=== PATIENT | male | born 1935 | race Caucasian/White ===

== ENCOUNTER 2023-01-01 07:54 | Outpatient (OUT) | payer MEDICARE, OTHER, SELFPAY ==
[2023-01-01 08:26] LABS: Basophils Percent Auto 0.6 % (0.2-2.0); Eosinophils Absolute Auto 0.1 10^3/uL (0.0-0.7); Eosinophils Percent Auto 1.8 % (0.9-7.0); Hematocrit 43.1 % (42.0-54.0); Hemoglobin 14.5 g/dL (14.0-18.0); Immature Granulocytes Abs Auto 0.02 10^3/uL (0.00-0.03); Immature Granulocytes Pct Auto 0.4 % (0.0-0.5); Lymphocytes Absolute Auto 1.1 10^3/uL (1.2-3.8); Mean Corpuscular HGB Conc 33.6 g/dL (29.9-35.2); Mean Corpuscular Hemoglobin 31.9 pg (25.9-34.0); Mean Corpuscular Volume 94.7 fL (80.0-94.0); Mean Platelet Volume 9.6 fL (9.5-13.5); Monocytes Absolute Auto 0.5 10^3/uL (0.3-0.8); Monocytes Percent Auto 8.6 % (1.7-12.0); Neutrophils Absolute Auto 3.7 10^3/uL (1.4-6.5); Neutrophils Percent Auto 68.6 % (43.0-75.0); Platelet Count 169 10^3/uL (150-450); Red Blood Count 4.55 10^6/uL (4.70-6.10); White Blood Count 5.4 10^3/uL (4.0-11.0)
[2023-01-01 09:12] LABS: Alanine Aminotransferase 21 U/L (16-63); Anion Gap 10.7; BUN Creatinine Ratio 15.6; Carbon Dioxide 27.6 mmol/L (21.0-32.0); Chloride 108 mmol/L (98-107); Chol HDL Ratio 2.4; Cholesterol 99 mg/dL (<=200); Estimated GFR (African America 47 (>=60); Estimated GFR (Non-African Ame 39 (>=60); Glucose 120 mg/dL (74-106); HDL Cholesterol 41 mg/dL (40-60); LDL Cholesterol Calculated 43.2 mg/dL; Potassium 4.3 mmol/L (3.5-5.1); Sodium 142 mmol/L (136-145); Thyroid Stimulating Hormone 2.636 uIU/mL (0.358-3.740); Triglycerides 74 mg/dL (<=150); VLDL CHOLESTEROL 14.8 mg/dL
== END 2023-01-01 07:55 | disposition home or self-care (01) ==
LOC: LAB 07:58
PROVIDERS: PCP Internal Medicine; Visit Provider Internal Medicine
DX: N18.32 Chronic kidney disease, stage 3b (principal); Z79.899 Other long term (current) drug therapy; I50.32 Chronic diastolic (congestive) heart failure; E78.00 Pure hypercholesterolemia, unspecified; R53.83 Other fatigue
CPT/HCPCS: 36415; 80048; 80061; 83880; 84443; 84460; 85025

== ENCOUNTER 2023-04-04 07:14 | Outpatient (OUT) | payer MEDICARE, OTHER, SELFPAY ==
[2023-04-04 08:24] LABS: Anion Gap 13.8; BUN Creatinine Ratio 14.6; Chloride 107 mmol/L (98-107); Estimated GFR (African America 37 (>=60); Estimated GFR (Non-African Ame 31 (>=60); Glucose 131 mg/dL (74-106); Potassium 3.8 mmol/L (3.5-5.1); Sodium 141 mmol/L (136-145)
== END 2023-04-04 07:15 | disposition home or self-care (01) ==
LOC: LAB 07:15
PROVIDERS: PCP Internal Medicine; Visit Provider Internal Medicine Cardiovascular Disease
DX: I10 Essential (primary) hypertension (principal); I48.91 Unspecified atrial fibrillation
CPT/HCPCS: 36415; 80048

== ENCOUNTER 2024-01-28 07:09 | Outpatient (OUT) | payer MEDICARE, OTHER, SELFPAY ==
--- OUTSIDE RECORDS SUMMARY | 2024-01-28 07:12 | XMS_ITS | CCD ---
Author Organization [facility] Providers Care Branch Rental Manager Name Role Phone PHYSICIAN, DEFAULT Unavailable Unavailable PHYSICIAN, DEFAULT Unavailable Unavailable MOFFETT, DK Unavailable Unavailable NO FAMILY DOCTOR, NO FAMILY DOCTOR Unavailable Unavailable Sanya Nuno Unavailable Unavailable Unavailable SANYA NUNO Primary Care Physician Sanya Nuno Unavailable Yaakov, Dr. Sanya Snyder Primary Care Arie birch Moffett, Dk Referring Unavailable Moffett, Dk Attending Unavailable Moffett, Dk Attending Unavailable Ball, Dr. Sanya Snyder Primary Care Unavai lable Moffett, Dk Referring Unavailable BALL, DR LOVELACE Admitting Unavailable BALL, DR LOVELACE Primary Care Unavailable BALL, DR LOVELACE Consulting Unavailable BALL, DR LOVELACE Attending Unavailable BALL, DR LOVELACE Admitting Unavailable BALL, DR LOVELACE Primary Care Unavailable BALL, DR LOVELACE Consulting Unavailable BALL, DR LOVELACE Attending Unavailable LE, NISHANT Consulting Unavailable BALL, DR LOVELACE Primary Care Unavailable MOFFETT, DR DK Higginbotham Consulting Unavailable MOFFETT, DR DK Higginbotham Attending Unavailable MOFFETT, DR DK Higginbotham Admitting Unavailable BALL, DR LOVELACE Admitting Unavailable BALL, DR LOVELACE Primary Care Unavailable BALL, DR LOVELACE Consulting Unavailable BALL, DR LOVELACE Attending Unavailable WEST, DR GITA Barry Consulting Unavailable BALL, DR LOVELACE Admitting Unavailable BALL, DR LOVELACE Consulting Unavailable BALL, DR LOVELACE Primary Care Unavailable BALL, DR LOVELACE Attending Unavailable YEH, BRYSON Consulting Unavailable BALL, DR LOVELACE Admitting Unavailable BALL, DR LOVELACE Primary Care Unavailable BALL, DR LOVELACE Attending Unavailable BALL, DR LOVELACE Attending Unavailable BALL, DR LOVELACE Admitting Unavailable BALL, DR LOVELACE Primary Care Unavailable BALL, DR LOVELACE Primary Care Unavailable NADERER, DR ROSEMARY Houston Attending Unavailable NADERER, DR ROSEMARY Houston Admitting Unavailable HOY ., DR ROBLES Consulting Unavailable NADMARIANA, DR ROSEMARY Houston Consulting Unavailable PAY ., DR TUCKER Consulting Unavailable SUSU ., NE Consulting Unavailable DEVEN, BRIELLE Consulting Unavailable TRAVIS CHEW Consulting Unavailable RONA VINCENT Consulting Unavailable MANA CALVO Consulting Unavailable Ariel Tyson Consulting Unavailable Rojelio MARK Attending Unavailable JANICE WILLIAMSON Attending Unavailable Shyann Inman Attending Unavailable Sanya Nuno DO Primary Care Provider DK MOFFETT Attending Unavailable DK MOFFETT Referring Unavailable SANYA NUNO Primary Care Unavailable ARCHANA VAZQUEZ Attending Unavailable ARCHANA VAZQUEZ Attending Unavailable RANI RILEY Attending Unavailable RONA PAYNE Attending Unavailable TEENA LYNCH Attending Unavailable ARCHANA VAZQUEZ Attending Unavailable Allergies Allergy Classification Reported Allergen(s) Allergy Type Date of Onset Reaction(s) Facility (14 sources) HMG-CoA reductase inhibitor Drug allergy Unknown [employer] Other (5 sources) gabapentin Drug Allergy 4 Unknown, Unknown Reaction [facility] (1 source) gabapentin; Translations: [Neurontin] Drug Allergy [facility] Repository (1 source) Hmg-Coa Reductase Inhibitors (Statins); Translations: [statins] Propensity to adverse reactions (disorder) [facility] Repository (1 source) No Known Medication Allergies; Translations: [No Known Medication Allergies] Propensity to adverse reactions (disorder) [facility] Repository (2 sources) Lphsaky-BDW-[id number] Reductase Inhibitor Allergy to substance 4 Unknown Reaction [facility] Medications Current Medications Medication Drug Class(es) Dates Sig (Normalized) Sig (Original) ALPRAZolam 0.25 mg oral tablet (16 sources) Benzodiazepine Start: 10-03-2023 take 0.25 mg by mouth once daily Alprazolam Active 0.25 MG PO Daily October 03, 2023 12:00am ALPRAZolam 0.25 MG 1 tablet Orally as needed for anxiety Active apixaban 2.5 mg oral tablet (20 sources) Factor Xa Inhibitor Start: 07-17-2019 take 1 tablet by mouth twice daily Apixaban (Eliquis) 2.5 mg tablet Active 2.5 MG PO Twice daily October 03, 2023 12:00am take 1 tablet by mouth every twe lve hours Eliquis 2.5 MG TAKE 1 TABLET BY MOUTH EVERY 12 HOURS Active aspirin 81 mg delayed release oral tablet (20 sources) Platelet Aggregation Inhibitor, Nonsteroidal Anti-inflammatory Drug Start: 08-25-2019 take 81 mg by mouth once daily Aspirin Active 81 MG PO Daily October 03, 2023 12:00am atorvastatin 10 mg oral tablet (20 sources) HMG-CoA Reductase Inhibitor Start: 12-29-2019 take 10 mg by mouth once daily Atorvastatin Active 10 MG PO Daily October 03, 2023 12:00am clopidogrel 75 mg oral tablet (20 sources) [id number] Platelet Inhibitor Start: 07-03-2022 take 75 mg by mouth once daily Clopidogrel Active 75 MG PO Daily October 03, 2023 12:00am clotrimazole 10 mg/ml topical cream (1 source) Azole Antifungal Start: 10-02-2023 clotrimazole Top 1% Crm 1 fabio, Topical, BID, 60 gram, Refill(s) 1, [facility] #[id number], 176, cm, 10/02/23 12:34:00 EDT, Height/Length Dosing, 97.5, kg, 10/02/23 12:34:00 EDT, Weight Dosing Start Date: 10/02/23 Status: Ordered dilTIAZem (13 sources) Calcium Channel Paul dilTIAZe m HCl Active finasteride 5 mg oral tablet (20 sources) 5-alpha Reductase Inhibitor Start: 08-07-2020 take 5 mg by mouth once daily Finasteride Active 5 MG PO Daily October 03, 2023 12:00am furosemide 40 mg oral tablet (14 sources) Loop Diuretic Start: 09-11-2023 take 1 tablet by mouth every other day Furosemide Active 0 .ROUTE .COMPLEX 45 September 11, 2023 5:57pm TAKE 1 TABLET BY MOUTH EVERY OTHER DAY Start: 09-11-2023 End: 09-11-2023 take 1 tablet by mouth every other day Furosemide Discontinued 40 MG PO Every 48 hours September 11, 2023 12:00am September 11, 2023 5:58pm 1 tablet Orally qod take 1 tablet by lacie th once daily Furosemide 40 MG TAKE 1 TABLET BY MOUTH EVERY DAY FOR 15 DAYS Active gabapentin 300 mg oral capsule (20 sources) Anti-epileptic Agent Start: 12-23-2023 take 1 capsule by mouth once daily Gabapentin Active 0 .ROUTE .COMPLEX December 23, 2023 7:35am TAKE 1 CAPSULE BY MOUTH EVERY DAY Start: 08-15-2021 take 1 mg by mouth t hree times daily gabapentin 100 mg Cap mg cap(s), Oral, TID, Refills(s) 0 Start Date: 08/15/21 Status: Ordered Start: 07-19-2021 End: 12-23-2023 take 300 mg by mouth once daily Gabapentin Discontinue d 300 MG PO Daily October 03, 2023 12:00am December 23, 2023 7:35am Start: 08-02-2020 take 1 capsule by mo uth once daily Gabapentin 100 MG Oral Capsule TAKE 1 CAPSULE BY MOUTH EVERY DAY Quantity: 30 Refills: 0 Ordered: 02-Aug-2020 DO Start : 02-Aug-2020 Active losartan potassium 50 mg oral tablet (20 sources) Angiotensin 2 Receptor Paul Start: 06-14-2021 Losartan Potassium 5 0 MG Oral Tablet Quantity: 90 Refills: 0 Ordered: 14-Jun-2021 DO Start : 14-Jun-2021 Active Start: 08-25-2019 take 50 mg by mouth once daily Losartan Active 50 MG PO Daily October 03, 2023 12:00am metoprolol tartrate 25 mg oral tablet (20 sources) beta-Adrenergic Paul Start: 10-16-2023 End: 10-15-2024 take 0.5 tablet by mouth once daily metoprolol tartrate (Lopressor) 25 mg tablet Indications: Atherosclerotic heart disease of [place] coronary artery without angina pectoris Take 0.5 tablets (12.5 mg) by mouth once daily. 45 tablet 3 10/16/2023 10/15/2024 Active Start: 10-16-2023 take 12.5 mg by mout h once daily Metoprolol Succinate Active 12.5 MG PO Daily October 16, 2023 1:01pm Start: 07-31-2023 End: 10-16-2023 take 1 tablet by mouth once daily metoprolol tartrate (Lopressor) 25 mg tablet Indications: Atherosclerotic heart disease of [place] coronary artery without angina pectoris Take 1 tablet (25 mg) by mouth once daily. 90 tablet 3 07/31/2023 10/16/2023 Discontinued (Reorder) Start: 09-13-2022 take 0.5 tablet by m outh once daily Metoprolol Tartrate 25 MG Oral Tablet TAKE 1/2 TABLET ONE TIME DAILY Quantity: 45 Refills: 3 Ordered: 13-Sep-2022 Dk Moffett MD Start : 13-Sep-2022 Active Start: 06-07-2022 take 1 tablet by lacie th once daily Metoprolol Tartrate 25 MG Oral Tablet TAKE 1 TABLET BY MOUTH EVERY DAY Quantity: 90 Refills: 3 Ordered: 07-Jun-2022 Dk Moffett MD Start : 07-Jun-2022 Active Start: 08-25-2019 End: 10-16-2023 take 25 mg by mouth once daily Metoprolol Succinate Discontinued 25 MG PO Daily October 03, 2023 12:00am October 16, 2023 1:01pm Metoprolol Tartr ate Active take 1 tablet by lacie th once daily Metoprolol Tartrate 25 MG Oral Tablet TAKE 1 TABLET DAILY. Quantity: 90 Refills: 3 Ordered: 16-Aug-2021 Dk Moffett MD Active omeprazole 40 mg delayed release oral capsule (16 sources) Proton Pump Inhibitor Start: 10-03-2023 take 40 mg by mouth once daily Omeprazole Active 40 MG PO Daily October 03, 2023 12:00am take 1 capsule by mo wvh every twenty-four hours Omeprazole 40 MG 1 capsule Orally Once a day Active oxybutynin chloride 5 mg oral tablet (16 sources) Cholinergic Muscarinic Antagonist Start: 10-03-2023 take 5 mg by mouth at bedtime Oxybutynin Chloride Active 5 MG PO Bedtime October 03, 2023 12:00am take 1 tablet by mouth at bedtim e oxyBUTYnin Chloride 5 MG 1 tablet Orally HS Active sennosides (SENNA ORAL) (1 source) take 1 tablet by mouth once daily sennosides (SENNA ORAL) Take 1 tablet by mouth once daily. Active tamsulosin hydrochloride 0.4 mg oral capsule (20 sources) alpha-Adrenergic Paul Start: 07-17-2019 take 0.4 mg by mouth once daily Tamsulosin Active 0.4 MG PO Daily October 03, 2023 12:00am Completed/Discontinued Medications Medication Drug Class(es) Dates Sig (Normalized) Sig (Original) betamethasone 0.5 mg/ml / clotrimazole 10 mg/ml topical cream (20 sources) Azole Antifungal, Corticosteroid Start: 10-02-2023 betamethasone-cl otrimazole Top 0.05%-1% Crm 15 gram Start Date: 10/02/23 Status: Ordered Start: 09-19-2023 Clotrimazole-B etamethasone Active 0 .ROUTE .COMPLEX September 19, 2023 10:50am APPLY TO AFFECTED AREA TWICE DAILY NEEDED FOR 14 DAYS Start: 09-19-2023 End: 09-19-2023 Clotrimazole-Betamethasone D iscontinued 1 APPLIC TOPICAL September 19, 2023 12:00am September 19, 2023 10:50am APPLY TO AFFECTED AREA TWICE A DAY NEEDED Start: 03-01-2020 betamethasone- clotrimazole Top 0.05%-1% Crm 15 gram Refill(s) 0 Start Date: 03/01/20 Status: Ordered Clotrimazole-Bet amethasone 1-0.05 % APPLY TO AFFECTED AREA TWICE A DAY NEEDED FOR 14 DAYS for 14 Active linaclotide 0.072 mg oral capsule (14 sources) Guanylate Cyclase-C Agonist Start: 02-13-2018 take 1 capsule by mouth every twenty-four hours Linzess 72 MCG 1 capsule on an empty stomach Orally Once a day for 30 day(s) Jan, Not-Taking/PRN Start: 02-13-2018 take 1 capsule by mo ut every twenty-four hours Linzess 72 MCG 1 capsule on an empty stomach Orally Once a day for 30 day(s) Jan, Not-Taking pantoprazole 40 mg delayed release oral tablet (14 sources) Proton Pump Inhibitor Start: 02-13-2018 take 1 tablet by mouth every twenty-four hours Pantoprazole Sodium 40 MG 1 tablet Orally Once a day for 30 day(s) Jan, Not-Taking/PRN Senna Smooth TABS (9 sources) Senna Smooth TAB S USE DIRECTED. Quantity: 0 Refills: 0 Ordered: 02-Aug-2021 DO Active Problems Active Problems Problem Classification Problem Date Documented Da te Episodic/Chronic Abdominal pain (20 sources) Flank pain; Translations: [Indigestion] Onset: 5 Resolved: 2 03-01-2020 Episodic Acute cerebrovascular disease (20 sources) Cerebrovascular accident; Translations: [Stroke syndrome] Onset: 7 08-25-2019 Chronic Anxiety disorders (18 sources) Generalized anxiety disorder; Translations: [Generalized anxiety disorder] Chronic Aortic; peripheral; and visceral artery aneurysms (13 sources) Abdominal aortic aneurysm; Translations: [Aneurysm of infrarenal abdominal aorta ] Onset: 8 07-17-2019 Chronic Calculus of urinary tract (20 sources) History of calculus of kidney; Translations: [Kidney stone] Onset: 3 03-01-2020 Episodic Cardiac and circulatory congenital anomalies (20 sources) Patent foramen ovale; Translations: [Ostium secundum type atrial septal defect] Onset: 8 07-17-2019 Chronic Cardiac dysrhythmias (20 sources) Supraventricular tachycardia; Translations: [Other specified cardiac dysrhythmias] Onset: 3 08-25-2019 Chronic Chronic kidney disease (20 sources) Chronic kidney disease stage 3; Translations: [Chronic kidney disease, Stage III (moderate)] Onset: 5 10-03-2023 Chronic Chronic kidney disease (9 sources) Chronic kidney disease; Translations: [CHRONIC KIDNEY DISEASE STAGE 3B] Onset: 3 Conditions associated with dizziness or vertigo (19 sources) Benign paroxysmal positional vertigo; Translations: [Benign paroxysmal vertigo, bilateral] Onset: 2 Episodic Congestive heart failure; nonhypertensive (20 sources) Acute on chronic diastolic heart failure; Translations: [Acute on chronic diastolic (congestive) heart failure] Onset: 3 Chronic Coronary atherosclerosis and other heart disease (20 sources) Atherosclerotic heart disease of [place] coronary artery without angina pectoris; Translations: [Coronary atherosclerosis] Onset: 8 Resolved: 2 Chronic Disorders of lipid metabolism (20 sources) Mixed hyperlipidemia; Translations: [Mixed hyperlipidemia] Onset: 8 Resolved: 2 Chronic Esophageal disorders (20 sources) Gastroesophageal reflux disease; Translations: [Gastro-esophageal reflux disease without esophagitis] 07-17-2019 Chronic Essential hypertension (20 sources) Essential hypertension; Translations: [Unspecified essential hypertension] Onset: 3 07-17-2019 Chronic Fluid and electrolyte disorders (1 source) Dehydration; Translations: [DEHYDRATION] Onset: 3 Episodic Genitourinary symptoms and ill-defined conditions (20 sources) Nocturia; Translations: [Nocturia] Onset: 2 Episodic Heart valve disorders (13 sources) Mitral valve regurgitation; Translations: [Mitral valve disorders] Onset: 3 10-16-2023 Chronic Hyperplasia of prostate (20 sources) Benign prostatic hypertrophy with outflow obstruction; Translations: [Benign prostatic hyperplasia with lower urinary tract symptoms] Onset: 2 Chronic Hypertension with complications and secondary hypertension (20 sources) Hypertensive renal disease; 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] Onset: 6 07-17-2019 Chronic Immunizations and screening for infectious disease (3 sources) Vaccination given; Translations: [Encounter for immunization] Episodic Inflammatory conditions of male genital organs (7 sources) Balanitis; Translations: [Balanitis] Onset: 2 Chronic Intracranial injury (3 sources) Concussion with no loss of consciousness; Translations: [Concussion without loss of consciousness, subsequent encounter] Episodic Nausea and vomiting (14 sources) Nausea; Translations: [Nausea] Episodic Neoplasms of unspecified nature or uncertain behavior (17 sources) Carcinoid tumor of stomach; 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] Episodic Open wounds of head; neck; and trunk (17 sources) Facial laceration ; Translations: [Laceration without foreign body of other part of head, subsequent encounter] Episodic Osteoarthritis (20 sources) Localized, primary osteoarthritis of the ankle and/or foot; Translations: [Primary osteoarthritis, left ankle and foot] Onset: 8 Chronic Other aftercare (9 sources) Drug therapy finding; Translations: [Long-term (current) use of other medications] Episodic Other aftercare (14 sources) H/O: high risk medication; Translations: [Other snf (current) drug therapy] Episodic Other aftercare (17 sources) Long-term current use of anticoagulant; Translations: [residential (current) use of anticoagulants] Episodic Other aftercare (2 sources) Other snf (current) drug therapy; Translations: [OTH CORPORATE RECYCLING MANAGER CURRENT DRUG THERAPY] Onset: 3 Episodic Other aftercare (4 sources) residential (current) use of anticoagulants; Translations: [CORRECTION CURRNT USE ANTICOAGULANTS] Onset: 3 Episodic Other aftercare (3 sources) Long-term current use of drug therapy; Translations: [Other termite exterminator (current) drug therapy] Episodic Other and ill-defined cerebrovascular disease (16 sources) Cerebral atherosclerosis; Translations: [Cerebral atherosclerosis] 10-03-2023 Chronic Other and ill-defined cerebrovascular disease (5 sources) Cerebral atherosclerosis; Translations: [Cerebral atherosclerosis] Chronic Other and ill-defined cerebrovascular disease (1 source) Cerebrovascular disease, unspecified; Translations: [CEREBROVASCULAR DISEASE UNSPECIFIED] Onset: 3 Chronic Other and unspecified benign neoplasm (7 sources) History of polyp of colon; Translations: [Personal history of colonic polyps] Onset: 8 07-17-2019 Episodic Other circulatory disease (4 sources) History of paroxysmal supraventricular tachycardia 07-17-2019 Episodic Other circulatory disease (1 source) Personal history of transient ischemic attack (TIA), and cerebral infarction without residual deficits; Translations: [PERS HX TIA AND CI NO RESID DEFICIT] Onset: 3 Episodic Other congenital anomalies (3 sources) Congenital spondylolysis of lumbosacral region; Translations: [Congenital spondylolysis, lumbosacral region] Onset: 7 Chronic Other connective tissue disease (8 sources) Plantar fascial fibromatosis; Translations: [Plantar fascial fibromatosis] Episodic Other connective tissue disease (14 sources) Bursitis of olecranon of right elbow; Translations: [Olecranon bursitis, right elbow] Episodic Other connective tissue disease (1 source) Olecranon bursitis, right elbow Episodic Other diseases of kidney and ureters (17 sources) Acquired renal cystic disease; Translations: [Cyst of kidney, acquired] Episodic Other diseases of kidney and ureters (2 sources) Urinary tract obstruction; Translations: [Other obstructive and reflux uropathy] Onset: 4 Episodic Other eye disorders (8 sources) Nystagmus; Translations: [Unspecified nystagmus] Chronic Other eye disorders (1 source) Unspecified nystagmus; Translations: [UNSPECIFIED NYSTAGMUS] Onset: 2 Chronic Other gastrointestinal disorders (14 sources) 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; Translations: [Irritable bowel syndrome with constipation] Chronic Other gastrointestinal disorders (17 sources) Constipation; Translations: [Constipation, unspecified] Onset: 4 Episodic Other gastrointestinal disorders (14 sources) Abdominal distension, gaseous; Translations: [Abdominal distension (gaseous)] Episodic Other hereditary and degenerative nervous system conditions (3 sources) Restless legs; Translations: [Restless legs syndrome] Onset: 8 Chronic Other injuries and conditions due to external causes (9 sources) At risk for falls ; Translations: [History of fall] Episodic Other injuries and conditions due to external causes (1 source) History of falling; Translations: [HISTORY OF FALLING] Onset: 3 Episodic Other injuries and conditions due to external causes (3 sources) History of fall; Translations: [History of falling] Episodic Other male genital disorders (4 sources) Pain in penis 03-01-2020 Chronic Other nervous system disorders (5 sources) Chronic pain; Translations: [Other chronic pain] Chronic Other nervous system disorders (3 sources) Hereditary peripheral neuropathy; 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] Onset: 8 Chronic Other nervous system disorders (17 sources) Ataxia; Translations: [Ataxia, unspecified] Episodic Other nervous system disorders (5 sources) Skin sensation disturbance; Translations: [Paresthesia of skin] Episodic Other nervous system disorders (1 source) Paresthesia of skin Episodic Other nervous system disorders (3 sources) General unsteadiness; Translations: [Unsteadiness on feet] Episodic Other nervous system disorders (3 sources) Paresthesia; Translations: [Paresthesia of skin] Episodic Other nervous system disorders (1 source) Unsteadiness on feet Episodic Other non-traumatic joint disorders (3 sources) Lower limb joint arthritis; Translations: [Osteoarthrosis, unspecified whether generalized or localized, lower leg] Onset: 7 Chronic Other non-traumatic joint disorders (14 sources) Arthralgia of the pelvic region and thigh; Translations: [Pain in right hip] Episodic Other nutritional; endocrine; and metabolic disorders (20 sources) Obesity; Translations: [Obesity, unspecified] Chronic Other nutritional; endocrine; and metabolic disorders (2 sources) Body mass index 30+ - obesity; Translations: [Body mass index (BMI) 30.0-30.9, adult] Onset: 4 10-16-2023 Chronic Other nutritional; endocrine; and metabolic disorders (2 sources) Body mass index (BMI) 30.0-30.9, adult; Translations: [Body mass index (BMI) 30.0-30.9, adult] Onset: 4 Chronic Other nutritional; endocrine; and metabolic disorders (4 sources) Overweight; Translations: [Overweight] Onset: 7 10-04-2023 Episodic Other upper respiratory disease (14 sources) Difficulty speaking; Translations: [Dysphonia] Episodic Other upper respiratory disease (3 sources) Dysphonia; Translations: [Dysphonia] Episodic Pancreatic disorders (not diabetes) (17 sources) Cyst and pseudocyst of pancreas; Translations: [Cyst of pancreas] Episodic Parkinson`s disease (17 sources) Parkinson's disease; Translations: [Parkinson's disease] Chronic Phlebitis; thrombophlebitis and thromboembolism (17 sources) 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; Translations: [Chronic embolism and thrombosis of left popliteal vein] Chronic Phlebitis; thrombophlebitis and thromboembolism (20 sources) Deep venous thrombosis; Translations: [Acute venous embolism and thrombosis of unspecified deep vessels of lower extremity] Onset: 9 07-17-2019 Episodic Skull and face fractures (17 sources) Fracture of nasal bones, subsequent encounter for fracture with routine healing; Translations: [Fractured nasal bones] Episodic Spondylosis; intervertebral disc disorders; other back problems (20 sources) Lumbar spondylosis; Translations: [Spondylosis without myelopathy or radiculopathy, lumbar region] Onset: 8 Chronic Spondylosis; intervertebral disc disorders; other back problems (12 sources) Pain in thoracic spine; Translations: [Pain in thoracic spine] Onset: 5 Resolved: 1 Episodic Superficial injury; contusion (20 sources) Contusion of foot; Translations: [Contusion of right foot, initial encounter] Onset: 6 Resolved: 2 Episodic Syncope (3 sources) Syncope and collapse; Translations: [Syncope and collapse] Episodic Unclassified (2 sources) Athscl heart disease of [place] coronary artery w/o ang pctrs / I25.10(ICD-9) Onset: 8 Unclassified (1 source) Supraventricular tachycardia / I47.1(ICD-9) Onset: 8 Unclassified (4 sources) Drug therapy finding 08-25-2019 Unclassified (5 sources) Bilateral low back pain without sciatica, unspecified chronicity; Translations: [Bilateral low back pain without sciatica, unspecified chronicity] Unclassified (2 sources) Permanent atrial fibrillation; Translations: [Permanent atrial fibrillation (Multi)] Onset: 3 Past or Other Problems Problem Classification Problem Date Documented Da te Episodic/Chronic Biliary tract disease (3 sources) Disorder of gallbladder; Translations: [Other specified diseases of gallbladder] Onset: 12-17-2017 Episodic Blindness and vision defects (9 sources) Diplopia; Translations: [Diplopia] Onset: 04-26-2017 Episodic Cardiac dysrhythmias (3 sources) Palpitations; Translations: [Palpitations] Onset: 04-26-2017 Episodic Deficiency and other anemia (3 sources) Anemia; Translations: [Anemia, unspecified] Onset: 05-06-2018 Episodic Esophageal disorders (13 sources) Esophageal disorders; Translations: [Gastroesophageal reflux disease with esophagitis without hemorrhage] Gastrointestinal hemorrhage (3 sources) Melena; Translations: [Melena] Onset: 10-14-2018 Episodic Headache; including migraine (3 sources) Paroxysmal hemicrania; Translations: [Episodic paroxysmal hemicrania, not intractable] Resolved: 06-29-2021 Chronic Malaise and fatigue (8 sources) Weakness; Translations: [Other fatigue] Onset: 04-26-2017 Episodic Mycoses (3 sources) Candidal balanitis; Translations: [Candidal balanitis] Resolved: 03-31-2020 Episodic Nonspecific chest pain (6 sources) Precordial pain; Translations: [Precordial pain] Onset: 02-10-2013 Episodic Open wounds of extremities (3 sources) Laceration of right hand; Translations: [Laceration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 provider. ? Keep all follow-up visits. This is important. Contact a health care provider if: ? You have uncomfortable bladder contractions that you cannot control (spasms). ? You leak urine with the spasms. Get help right away if: ? You have chills or a fever. ? You have blood in your urine. ? You have a catheter and the following happens: ? Your catheter stops draining urine. ? Your catheter falls out. Summary ? Acute urinary retention is a condition in which a person is unable to pass urine or can only pass a little urine. If left untreated, this condition can result in kidney damage or other serious complications. ? An enlarged prostate may cause this condition. As men age, their prostate gland may become larger and may press or squeeze on the bladder or the urethra. ? Treatment for this condition may include medicines and placement of an indwelling urinary catheter. ? Monitor any changes in your symptoms. Tell your health care provider about any changes. This information is not intended to replace advice given to you by your health care provider. Make sure you discuss any questions you have with your health care provider. Document Revised: 02/23/2021 Document Reviewed: 02/23/2021 [employer] Patient Education ? 2022 [employer] Shraddha [facility] Urology Office/Clinic Noteon 09-18-2023 Urology Office/Clinic Note Chief Complaint 1 year HPI Staff PRW patient. 1 yr f/u. Dx: BPH w/ urinary obstruction, Nocturia, Balanitis, Proteinuria. Finasteride 5mg QD, Tamsulosin 0.4mg QD, Betamethasone-clotrimazo le PRN. Pt. was not able to give a urine sample today. Dysuria: no Incomplete bladder emptying: no Hematuria: no Frequency: every 2 hours Urgency: no Nocturia: 2x's Stream: good stream Post void dripping: no Wearing pads/ Depends: no Urge incontinence: occasionally Stress incontinence: no Incontinence without Sensory Awareness: no Abdominal pain: no Flank pain: no History of Present Illness Tests Reviewed: Reviewed UA. I have reviewed the previous health record information and history for this patient from Dr Mark I have reviewed and verified the staff HPI to be accurate for this encounter. There have been no associated fever, chills, flank pain, or blood in the urine. Denies any urinary infections since last encounter. Review of Systems PHQ Score Initial Depression Screen Score: 0 SCORE no fever, chills, malaise, myalgia. no rash/lesions. no chest pain, palpitations, or SOB. no abdominal pain, nausea, vomiting. no unilateral calf swelling, redness, pain Physical Exam Vitals & Measurements HT: 69 in HT: 176 cm WT: 97.5 kg WT: 214.5 lb BMI: 31.48 General: nontoxic, NAD Mouth: moist mucosa Lungs: normal respiratory effort Cardio: regular rate, good distal perfusion Abdomen: nondistended, no suprapubic distention or tenderness, no CVA tenderness Neurologic: Grossly normal Skin: No rashes or suspicious lesions Assessment/Plan unable to give UA 1. BPH with urinary obstruction (N40.1: Benign prostatic hyperplasia with lower urinary tract symptoms) IPSS 18 QOL 3 Pt is taking tamsulosinand finasteride and is mostly satisfiedwith overall symptom control. Pt is experiencing noside effects. We discussed current dose and optional changes: increasing tamsulosin to BID... would not recommend d/t age/risk of hypotension I discussed with the patient the different surgical treatment options for bladder outlet obstruction including TURP, Rezum, and Urolift. The patient prefers to continue the BPH medications at this time. -Continue Finasteride 5mg QD and Tamsulosin 0.4mg QD. refills provided. 2. Nocturia (R35.1: Nocturia) Ongoing, 2x/night. Pt was on Myrbetriq but stopped because it caused Nausea Other obstructive and reflux uropathy (N13.8: Other obstructive and reflux uropathy) Follow-up With When Contact Information CLAY CHENEY, JANICE Schofield, URL In 1 year [address] [place] [address] Additional Instructions: w/FABIO or PRW Patient Education Acute Urinary Retention, Male Documentation recorded by the scribkanwal Riley accurately reflects the services(s) I performed and decisions made by me. Authenticated by Janice Williamson PA-C on 09/18/2023 11:32:32. I, Tracee Riley, personally scribed for Janice Williamson PA-C on 09/18/2023 11:12:41. . 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 Medications aspirin 81 mg Oral EC Tab, Oral, Daily atorvastatin, 10 mg, Oral, Daily clopidogrel 75 mg Tab Eliquis, 2.5 mg, Oral, BID finasteride 5 mg Tab, 5 mg= 1 tab(s), Oral, Daily, 3 refills gabapentin 100 mg Cap, Oral, TID losartan 50 mg Tab, 50 mg= 1 tab(s), Oral, Daily metoprolol 25 mg ER Tab, Oral, Daily tamsulosin, 0.4 mg, Oral, Daily Allergies No Known Medication Allergies Social History Alcohol - Denies Alcohol Use, 08/25/2019 Substance Abuse - Denies Substance Abuse, 03/14/2021 Tobacco - Denies Tobacco Use, 03/14/2021 Never (less than 100 in lifetime) Tobacco Use:., 09/18/2023 Family History Cancer: Mother. Liver disease: Mother. Immunizations Vaccine Date Status influenza virus vaccine, inactivated 2022 Recorded SARS-CoV-2 (COVID-19) mRNA BNT-162b2 vax 04/07/2021 Recorded influenza virus vaccine, inactivated 03/2021 Recorded SARS-CoV-2 (COVID-19) mRNA BNT-162b2 vax 07/31/2020 Recorded SARS-CoV-2 (COVID-19) mRNA BNT-162b2 vax 07/10/2020 Recorded influenza virus vaccine, live, trivalent 03/31/2019 Recorded Normal [facility] Comment on above: Result Comment: Elec tronically Signed By: JANICE WILLIAMSON PA-C\.br\Date and Time Signed: 09/18/23 11:33 EDT\.br\Electronically Co-Signed By: Tracee Riley MA\.br\Date and Time Co-Signed: 09/18/23 11:13 EDT BNPon 11-14-2022 Natriuretic peptide B (Bld) [Mass/Vol] 4879.0 pg/mL Critically high <=1,800.0 [facility] Comment on above: Performed By: #### B BAGGAGE AND MAIL AGENT, BMP ####[facility] [address] [place] [address]Dr. Hunter Stewart PROF CHEM 8 (BAS METB)on Anion gap [Moles/Vol] 13.6 mmol/L Normal [facility] Comment on above: Performed By: #### B BAGGAGE AND MAIL AGENT, BMP #### [facility] [address] [address] [address] Hunter Stewart Calcium [Mass/Vol] 8.7 mg/dL Normal 8.5-10.1 [facility] Comment on above: Performed By: #### B BAGGAGE AND MAIL AGENT, BMP #### [facility] [address] [address] [address] Hunter Stewart Chloride [Moles/Vol] 106 mmol/L Normal 98-107 [facility] Comment on above: Performed By: #### B BAGGAGE AND MAIL AGENT, BMP #### [facility] [address] [address] [address] Hunter Stewart CO2 [Moles/Vol] 26.3 mmol/L Normal 21.0-32.0 [facility] Comment on above: Performed By: #### B BAGGAGE AND MAIL AGENT, BMP #### [facility] [address] [place] [address] Dr. Hunter Stewart Creatinine [Mass/Vol] 1.95 mg/dL Critically high 0.70-1.30 [facility] Comment on above: Performed By: #### B BAGGAGE AND MAIL AGENT, BMP #### [facility] [address] [place] [address] Dr. Hunter Stewart EGFR-AF RUSSIAN 40 mL/min/1.73m2 Critically low >=60 [facility] Comment on above: Performed By: #### B BAGGAGE AND MAIL AGENT, BMP #### [facility] [address] [place] [address] Dr. Hunter Stewart EGFR-NON AF RUSSIAN 33 mL/min/1.73m2 Critically low >=60 [facility] Comment on above: Performed By: #### B BAGGAGE AND MAIL AGENT, BMP #### [facility] [address] [place] [address] Dr. Hunter Stewart Glucose [Mass/Vol] 144 mg/dL Critically high 74-106 [facility] Comment on above: Performed By: #### B BAGGAGE AND MAIL AGENT, BMP #### [facility] [address] [place] [address] Dr. Hunter Stewart Potassium [Moles/Vol] 3.9 mmol/L Normal 3.5-5.1 [facility] Comment on above: Performed By: #### B BAGGAGE AND MAIL AGENT, BMP #### [facility] [address] [place] [address] Dr. Hunter Stewart Sodium [Moles/Vol] 142 mmol/L Normal 136-145 [facility] Comment on above: Performed By: #### B BAGGAGE AND MAIL AGENT, BMP #### [facility] [address] [place] [address] Dr. Hunter Stewart Urea nitrogen [Mass/Vol] 29.0 mg/dL Critically high 7.0-18.0 [facility] Comment on above: Performed By: #### B BAGGAGE AND MAIL AGENT, BMP #### [facility] [address] [place] [address] Dr. Hunter Stewart Urea nitrogen/Creatinin e [Mass ratio] 14.9 mg/mg Normal [facility] Comment on above: Performed By: #### B BAGGAGE AND MAIL AGENT, BMP #### [facility] [address] [place], [place] [address] Dr. Hunter Stewart BNPon 11-03-2022 Natriuretic peptide B (Bld) [Mass/Vol] 7442.0 pg/mL Critically high <=1,800.0 [facility] Comment on above: Performed By: #### B BAGGAGE AND MAIL AGENT, BMP ####[facility] [address] [place] [phone] Stewart PROF CHEM 8 (BAS METB)on Anion gap [Moles/Vol] 13.1 mmol/L Normal [facility] Comment on above: Performed By: #### B BAGGAGE AND MAIL AGENT, BMP ####[facility] [address] [place] [address]DrMamadou Stewart Calcium [Mass/Vol] 9.1 mg/dL Normal 8.5-10.1 [facility] Comment on above: Performed By: #### B BAGGAGE AND MAIL AGENT, BMP ####[facility] [address] [place] [phone] Stewart Chloride [Moles/Vol] 104 mmol/L Normal 98-107 [facility] Comment on above: Performed By: #### B BAGGAGE AND MAIL AGENT, BMP ####[facility] [address] [place] [phone] Stewart CO2 [Moles/Vol] 27.2 mmol/L Normal 21.0-32.0 [facility] Comment on above: Performed By: #### B BAGGAGE AND MAIL AGENT, BMP ####[facility] [address] [place] [phone] Stewart Creatinine [Mass/Vol] 1.76 mg/dL Critically high 0.70-1.30 [facility] Comment on above: Performed By: #### B BAGGAGE AND MAIL AGENT, BMP ####[facility] [address] [place] [phone] Stewart EGFR-AF RUSSIAN 45 mL/min/1.73m2 Critically low >=60 [facility] Comment on above: Performed By: #### B BAGGAGE AND MAIL AGENT, BMP ####[facility] [address] [place] [address]Dr. Hunter Stewart EGFR-NON AF RUSSIAN 37 mL/min/1.73m2 Critically low >=60 [facility] Comment on above: Performed By: #### B BAGGAGE AND MAIL AGENT, BMP ####[facility] [address] [place] [address]Dr. Hunter Stewart Glucose [Mass/Vol] 163 mg/dL Critically high 74-106 [facility] Comment on above: Performed By: #### B BAGGAGE AND MAIL AGENT, BMP ####[facility] [address] [place] [address]Dr. Hunter Stewart Potassium [Moles/Vol] 4.3 mmol/L Normal 3.5-5.1 [facility] Comment on above: Performed By: #### B BAGGAGE AND MAIL AGENT, BMP ####[facility] [address] [place], [place] [address]Dr. Hunter Stewart Sodium [Moles/Vol] 140 mmol/L Normal 136-145 [facility] Comment on above: Performed By: #### B BAGGAGE AND MAIL AGENT, BMP ####[facility] [address] [place], [place] [address]Dr. Hunter Stewart Urea nitrogen [Mass/Vol] 23.0 mg/dL Critically high 7.0-18.0 [facility] Comment on above: Performed By: #### B BAGGAGE AND MAIL AGENT, BMP ####[facility] [address] [place], [place] [address]Dr. Hunter Stewart Urea nitrogen/Creatinin e [Mass ratio] 13.1 mg/mg Normal [facility] Comment on above: Performed By: #### B BAGGAGE AND MAIL AGENT, BMP ####[facility] [address] [place], [place] [address]Dr. Hunter Terry XR CHEST 2 Von 11-03-2022 XR CHEST 2 V EXAM: XR CHEST 2 V HISTORY: Acute on chronic diastolic heart failure COMPARISON: 10/28/2022 TECHNIQUE: PA and lateral views of the chest. FINDINGS: The cardiomediastinal silhouette is normal. No focal consolidation is identified. There is no pneumothorax. No pleural effusion is noted. The osseous structures are intact. IMPRESSION: No acute cardiopulmonary process. Electronically authenticated by: NISHANT CLAIR Date: 2022-11-03 12:47 Normal [facility] BNPon 10-28-2022 Natriuretic peptide B (Bld) [Mass/Vol] 3519.0 pg/mL Critically high <=1,800.0 [facility] Comment on above: Performed By: #### M G, CMP, BNP ####[facility] [address] [place] [address]Dr. Hunter Stewart CBC AUTO DIFFon 10-28-2022 BASO # 0.0 103/ul Normal 0.0-0.1 [facility] Comment on above: Performed By: #### C BC ####[facility] [address] [place] [address]Dr. Huntre Stewart Basophils/100 WBC (Bld) 0.5 % Normal 0.2-2.0 [facility] Comment on above: Performed By: #### C BC ####[facility] [address] [place], [place] [address]Dr. Hunter Stewart EO # 0.1 103/ul Normal 0.0-0.7 [facility] Comment on above: Performed By: #### C BC ####[facility] [address] [place], [place] [address]Dr. Hunter Stewart Eosinophils/100 WBC (Bld) 2.1 % Normal 0.9-7.0 [facility] Comment on above: Performed By: #### C BC ####[facility] [address] [place], [place] [address]Dr. Hunter Stewart Erythrocyte distribution width (RBC) [Ratio] 13.7 % Normal 11.0-15.0 [facility] Comment on above: Performed By: #### C BC ####[facility] [address] [place], [place] [address]Dr. Hunter Stewart Hematocrit (Bld) [Volume fraction] 40.4 % Critically low 42.0-54.0 [facility] Comment on above: Performed By: #### C BC ####[facility] [address] [place] [phone]. Hunter Stewart Hemoglobin (Bld) [Mass/Vol] 13.4 g/dL Critically low 14.0-18.0 [facility] Comment on above: Performed By: #### C BC ####[facility] [address] [place] [phone]. Hunter Stewart IG # 0.02 10e3/ul Normal 0.00-0.03 [facility] Comment on above: Performed By: #### C BC ####[facility] [address] [place] [address]Dr. Hunter Stewart IG % 0.3 % Normal 0.0-0.5 [facility] Comment on above: Performed By: #### C BC ####[facility] [address] [place], [place] [address]Dr. Hunter Stewart LYMPH # 1.5 103/ul Normal 1.2-3.8 [facility] Comment on above: Performed By: #### C BC ####[facility] [address] [place], [place] [address]Dr. Hunter Stewart Lymphocytes/100 WBC (Bld) 23.0 % Normal 20.5-60.0 [facility] Comment on above: Performed By: #### C BC ####[facility] [address] [place] [address]Dr. Hunter Stewart MANUAL DIFF REQ NO Normal [facility] Comment on above: Performed By: #### C BC ####[facility] [address] [place], [place] [address]Dr. Hunter Stewart MCH (RBC) [Entitic mass] 31.9 pg Normal 25.9-34.0 [facility] Comment on above: Performed By: #### C BC ####[facility] [address] [place], [place] [address]Dr. Hunter Stewart MCHC (RBC) [Mass/Vol] 33.2 g/dL Normal 29.9-35.2 [facility] Comment on above: Performed By: #### C BC ####[facility] [address] [place] [phone]. Hunter Stewart MCV (RBC) [Entitic vol] 96.2 fL Critically high 80.0-94.0 [facility] Comment on above: Performed By: #### C BC ####[facility] [address] [place] [phone]. Hunter Stewart MONO # 0.6 103/ul Normal 0.3-0.8 [facility] Comment on above: Performed By: #### C BC ####[facility] [address] [place] [phone]. Hunter Stewart Monocytes/100 WBC (Bld) 9.3 % Normal 1.7-12.0 [facility] Comment on above: Performed By: #### C BC ####[facility] [address] [place] [phone]. Hunter Stewart NEUT # 4.3 103/ul Normal 1.4-6.5 [facility] Comment on above: Performed By: #### C BC ####[facility] [address] [place] [phone]. Hunter Stewart Neutrophils/100 WBC (Bld) 64.8 % Normal 43.0-75.0 [facility] Comment on above: Performed By: #### C BC ####[facility] [address] [place] [phone]. Hunter Stewart Platelet mean volume (Bld) [Entitic vol] 9.6 fL Normal 9.5-13.5 [facility] Comment on above: Performed By: #### C BC ####[facility] [address] [place] [phone]. Hunter Stewart PLT 131 103/ul Critically low 150-450 [facility] Comment on above: Performed By: #### C BC ####[facility] [address] [place] [phone]. Hunter Stewart RBC 4.20 106/ul Critically low 4.70-6.10 [facility] Comment on above: Performed By: #### C BC ####[facility] [address] [place] [address]Dr. Hunter Stewart WBC 6.7 103/ul Normal 4.0-11.0 [facility] Comment on above: Performed By: #### C BC ####[facility] [address] [place] [address]Dr. Hunter Stewart MAGNESIUMon 10-28-2022 Magnesium [Mass/Vol] 2.2 mg/dL Normal 1.8-2.4 [facility] Comment on above: Performed By: #### M G, CMP, BNP ####[facility] [address] [place] [address]Dr. Hunter Stewart PROF 14(COMP METB)on 023 Albumin [Mass/Vol] 2.9 g/dL Critically low 3.4-5.0 [facility] Comment on above: Performed By: #### M G, CMP, BNP ####[facility] [address] [place], [place] [address]Dr. Hunter Stewart Albumin/Globulin [Mass ratio] 1.0 {ratio} Normal [facility] Comment on above: Performed By: #### M G, CMP, BNP ####[facility] [address] [place] [address]Dr. Hunter Stewart ALP [Catalytic activity/Vol] 69 U/L Normal 46-116 [facility] Comment on above: Performed By: #### M G, CMP, BNP ####[facility] [address] [place] [address]Dr. Hunter Stewart ALT [Catalytic activity/Vol] 14 U/L Critically low 16-63 [facility] Comment on above: Performed By: #### M G, CMP, BNP ####[facility] [address] [place] [address]Dr. Hunter Stewart Anion gap [Moles/Vol] 5.9 mmol/L Normal [facility] Comment on above: Performed By: #### M G, CMP, BNP ####[facility] [address] [place] [address]Dr. Hunter Stewart AST [Catalytic activity/Vol] 14 U/L Critically low 15-37 [facility] Comment on above: Performed By: #### M G, CMP, BNP ####[facility] [address] [place] [address]Dr. Hunter Stewart Bilirubin [Mass/Vol] 0.7 mg/dL Normal 0.2-1.0 [facility] Comment on above: Performed By: #### M G, CMP, BNP ####[facility] [address] [place] [address]Dr. Hunter Stewart Calcium [Mass/Vol] 8.7 mg/dL Normal 8.5-10.1 [facility] Comment on above: Performed By: #### M G, CMP, BNP ####[facility] [address] [place], [place] [address]Dr. Hunter Stewart Chloride [Moles/Vol] 111 mmol/L Critically high 98-107 [facility] Comment on above: Performed By: #### M G, CMP, BNP ####[facility] [address] [place], [place] [address]Dr. Hunter Stewart CO2 [Moles/Vol] 26.2 mmol/L Normal 21.0-32.0 [facility] Comment on above: Performed By: #### M G, CMP, BNP ####[facility] [address] [place], [place] [address]Dr. Hunter Stewart Creatinine [Mass/Vol] 1.62 mg/dL Critically high 0.70-1.30 [facility] Comment on above: Performed By: #### M G, CMP, BNP ####[facility] [address] [place], [place] [address]Dr. Hunter Stewart EGFR-AF RUSSIAN 49 mL/min/1.73m2 Critically low >=60 [facility] Comment on above: Performed By: #### M G, CMP, BNP ####[facility] [address] [place], [place] [address]Dr. Hunter Stewart EGFR-NON AF RUSSIAN 40 mL/min/1.73m2 Critically low >=60 [facility] Comment on above: Performed By: #### M G, CMP, BNP ####[facility] [address] [place] [address]Dr. Hunter Terry Globulin (S) [Mass/Vol] 2.8 g/dL Normal [facility] Comment on above: Performed By: #### M G, CMP, BNP ####[facility] [address] [place] [address]Dr. Kimberlybryanna Terry Glucose [Mass/Vol] 104 mg/dL Normal 74-106 [facility] Comment on above: Performed By: #### M G, CMP, BNP ####[facility] [address] [place] [address]Dr. Hunter Stewart Potassium [Moles/Vol] 4.1 mmol/L Normal 3.5-5.1 [facility] Comment on above: Performed By: #### M G, CMP, BNP ####[facility] [address] [place] [address]Dr. Hunter Stewart Protein [Mass/Vol] 5.7 g/dL Critically low 6.4-8.2 [facility] Comment on above: Performed By: #### M G, CMP, BNP ####[facility] [address] [place] [address]Dr. Hunter Stewart Sodium [Moles/Vol] 139 mmol/L Normal 136-145 [facility] Comment on above: Performed By: #### M G, CMP, BNP ####[facility] [address]xd[address] [place] [address]Dr. Kimberlybryanna Terry Urea nitrogen [Mass/Vol] 24.0 mg/dL Critically high 7.0-18.0 [facility] Comment on above: Performed By: #### M G, CMP, BNP ####[facility] [address] [place] [address]Dr. Hunter Stewart Urea nitrogen/Creatinin e [Mass ratio] 14.8 mg/mg [facility] Comment on above: Performed By: #### M G, CMP, BNP ####[facility] [address] [place] [address]Dr. Kimberlybryanna Terry XR CHEST 1 Von 10-28-2022 XR CHEST 1 V HISTORY: Weakness. Multiple falls. XR CHEST 1 V: 10/28/2022 5:59 AM EDT COMPARISON: Portable AP chest 10/27/2022. FINDINGS: The heart appears within upper limits of normal in size allowing for the portable technique. Elevation of the right hemidiaphragm is again seen. A calcified lymph node is again seen projecting over the left hilum. New small linear opacities in the lateral aspect of the right lung base are seen. No pneumothorax, pleural effusion, or congestive heart failure is identified. There are degenerative changes of the left glenohumeral joint. IMPRESSION: Probable development of mild subsegmental atelectasis in the lateral aspect of the right lung base. The lungs otherwise appear clear. Electronically authenticated by: TRAVIS CHEW Date: 2022-10-28 16:15 Normal [facility] CBC AUTO DIFFon 10-27-2022 BASO # 0.0 103/ul Normal 0.0-0.1 [facility] Comment on above: Performed By: #### C BC ####[facility] [address] [place] [address]Dr. Hunter Stewart Basophils/100 WBC (Bld) 0.3 % Normal 0.2-2.0 [facility] Comment on above: Performed By: #### C BC ####[facility] [address] [place], [place] [address]DrMamadou Stewart EO # 0.1 103/ul Normal 0.0-0.7 [facility] Comment on above: Performed By: #### C BC ####[facility] [address] [place], [place] [address]DrMamadou Stewart Eosinophils/100 WBC (Bld) 2.0 % Normal 0.9-7.0 [facility] Comment on above: Performed By: #### C BC ####[facility] Q[address] [place], [place] [address]DrMamadou Stewart Erythrocyte distribution width (RBC) [Ratio] 13.6 % Normal 11.0-15.0 [facility] Comment on above: Performed By: #### C BC ####[facility] [address] [place], [place] [address]DrMamadou Stewart Hematocrit (Bld) [Volume fraction] 41.1 % Critically low 42.0-54.0 [facility] Comment on above: Performed By: #### C BC ####[facility] [address] [place] [address]Dr. Hunter Stewart Hemoglobin (Bld) [Mass/Vol] 14.0 g/dL Normal 14.0-18.0 [facility] Comment on above: Performed By: #### C BC ####[facility] [address] [place], [place] [address]Dr. Hunter Stewart IG # 0.02 10e3/ul Normal 0.00-0.03 [facility] Comment on above: Performed By: #### C BC ####[facility] V[address] [place], [place] [address]Dr. Hunter Stewart IG % 0.3 % Normal 0.0-0.5 [facility] Comment on above: Performed By: #### C BC ####[facility] [address] [place], [place] [address]Dr. Hunter Stewart LYMPH # 1.2 103/ul Normal 1.2-3.8 [facility] Comment on above: Performed By: #### C BC ####[facility] Qebroxf[address] [place], [place] [address]Dr. Hunter Stewart Lymphocytes/100 WBC (Bld) 19.6 % Critically low 20.5-60.0 [facility] Comment on above: Performed By: #### C BC ####[facility] Qtgzoccsid[address] [place], [place] [address]Dr. Hunter Stewart MANUAL DIFF REQ NO Normal [facility] Comment on above: Performed By: #### C BC ####[facility] Cc[address] [place], [place] [address]Dr. Hunter Stewart MCH (RBC) [Entitic mass] 32.4 pg Normal 25.9-34.0 [facility] Comment on above: Performed By: #### C BC ####[facility] Imjjv[address]ftw[address] [place], [place] [address]Dr. Hunter Stewart MCHC (RBC) [Mass/Vol] 34.1 g/dL Normal 29.9-35.2 [facility] Comment on above: Performed By: #### C BC ####[facility] Rxfrfexwnh[address] [place], [place] [address]Dr. Hunter Stewart MCV (RBC) [Entitic vol] 95.1 fL Critically high 80.0-94.0 [facility] Comment on above: Performed By: #### C BC ####[facility] Bjkikbkp[address] [place], [place] [address]Dr. Kimberlybryanna Terry MONO # 0.6 103/ul Normal 0.3-0.8 [facility] Comment on above: Performed By: #### C BC ####[facility] [address] [place], [place] [address]Dr. Hunter Stewart Monocytes/100 WBC (Bld) 10.6 % Normal 1.7-12.0 [facility] Comment on above: Performed By: #### C BC ####[facility] Pp[address] [place], [place] [address]Dr. Kimberlybryanna Terry NEUT # 4.0 103/ul Normal 1.4-6.5 [facility] Comment on above: Performed By: #### C BC ####[facility] Zboqcp[address]ves[address] [place], [place] [address]Dr. Hunter Stewart Neutrophils/100 WBC (Bld) 67.2 % Normal 43.0-75.0 [facility] Comment on above: Performed By: #### C BC ####[facility] Hwu[address] [place], [place] [address]Dr. Hunter Stewart Platelet mean volume (Bld) [Entitic vol] 10.1 fL Normal 9.5-13.5 [facility] Comment on above: Performed By: #### C BC ####[facility] C[address] [place], [place] [address]Dr. Hunter Stewart PLT 161 103/ul Normal 150-450 [facility] Comment on above: Performed By: #### C BC ####[facility] Dqt[address]qf[address] [place], [place] [address]Dr. Hunter Stewart RBC 4.32 106/ul Critically low 4.70-6.10 [facility] Comment on above: Performed By: #### C BC ####[facility] [address] [place], [place] [address]JeMamadou Stewart WBC 6.0 103/ul Normal 4.0-11.0 [facility] Comment on above: Performed By: #### C BC ####[facility] [address] [place], [place] [address]Dv[address] CT CSPINE WO CONon 3 CT CSPINE WO CON TITLE: CT HEAD WO CON, CT CSPINE WO CON COMPARISON: None. CLINICAL HISTORY: Fall. Head and neck injury TECHNIQUE: Brain: 3 mm axial images without contrast. Cervical spine CT: 2 mm axial images obtained of the cervical spine without contrast. Multiplanar reconstructions created Automated exposure control was utilized. Dose reduction techniques were achieved by using automated exposure control and/or adjustment of mA and/or kV according to patient size and/or use of iterative reconstruction technique. FINDINGS: Head CT: There is mild to moderate parenchymal volume loss and mild hypodensity in the periventricular white matter. There is a large area of encephalomalacia of the right inferior cerebellum and a small area of encephalomalacia of the right occipital pole There is no mass, mass effect, parenchymal hemorrhage, nor subarachnoid hemorrhage. The extra-axial and extracranial structures appear normal. The CSF spaces are unremarkable. The skeletal structures are intact. Cervical spine CT: There is mild levo convexity. There is mild superior plate wedging of C3-C4. There is no displaced fracture. The adjacent soft tissues demonstrate carotid vascular calcification. There is multilevel facet and uncovertebral hypertrophy. There is mild to moderate foraminal narrowing IMPRESSION: REMOTE ISCHEMIC CHANGES OF THE RIGHT OCCIPITAL LOBE AND CEREBELLUM. NO ACUTE INTRACRANIAL FINDINGS BY HEAD CT WITHOUT CONTRAST. MILD DEGENERATIVE CHANGES OF THE CERVICAL SPINE. NO ACUTE FINDINGS AND CERVICAL SPINE BY CT WITHOUT CONTRAST. STABLE FOLLOW-UP Electronically authenticated by: ARIEL TYSON Date: 2022-10-27 14:44 Normal [facility] PROF 14(COMP METB)on 023 Albumin [Mass/Vol] 3.0 g/dL Critically low 3.4-5.0 [facility] Comment on above: Performed By: #### C MP, HSTROPN #### [facility] [address] [address] [address] Hunter Stewart Albumin/Globulin [Mass ratio] 1.0 {ratio} Normal [facility] Comment on above: Performed By: #### C MP, HSTROPN #### [facility] [address] [address] [address] Hunter Stewart ALP [Catalytic activity/Vol] 78 U/L Normal 46-116 [facility] Comment on above: Performed By: #### C MP, HSTROPN #### [facility] [address] [address] [address] Hunter Stewart ALT [Catalytic activity/Vol] 18 U/L Normal 16-63 [facility] Comment on above: Performed By: #### C MP, HSTROPN #### [facility] [address] [address] [address] Hunter Stewart Anion gap [Moles/Vol] 7.8 mmol/L Normal [facility] Comment on above: Performed By: #### C MP, HSTROPN #### [facility] [address] [address] [address] Hunter Stewart AST [Catalytic activity/Vol] 14 U/L Critically low 15-37 [facility] Comment on above: Performed By: #### C MP, HSTROPN #### [facility] [address] [address] [address] Hunter Stewart Bilirubin [Mass/Vol] 0.6 mg/dL Normal 0.2-1.0 [facility] Comment on above: Performed By: #### C MP, HSTROPN #### [facility] [address] [address] [address] Hunter Stewart Calcium [Mass/Vol] 8.9 mg/dL Normal 8.5-10.1 [facility] Comment on above: Performed By: #### C MP, HSTROPN #### [facility] [address] [address] [address] Hunter Stewart Chloride [Moles/Vol] 108 mmol/L Critically high 98-107 [facility] Comment on above: Performed By: #### C ANGELCIA, HSTROPN #### [facility] [address] [place] [address] Dr. Hunter Stewart CO2 [Moles/Vol] 25.6 mmol/L Normal 21.0-32.0 [facility] Comment on above: Performed By: #### C ANGELICA, HSTROPN #### [facility] [address] [place] [address] Dr. Hunter Stewart Creatinine [Mass/Vol] 1.95 mg/dL Critically high 0.70-1.30 [facility] Comment on above: Performed By: #### C ANGELICA, HSTROPN #### [facility] [address] [place] [address] Dr. Hunter Stewart EGFR-AF RUSSIAN 40 mL/min/1.73m2 Critically low >=60 [facility] Comment on above: Performed By: #### C ANGELICA, HSTROPN #### [facility] [address] [place] [address] Dr. Hunter Stewart EGFR-NON AF RUSSIAN 33 mL/min/1.73m2 Critically low >=60 [facility] Comment on above: Performed By: #### C ANGELICA, HSTROPN #### [facility] [address] [place] [address] Dr. Hunter Stewart Globulin (S) [Mass/Vol] 2.9 g/dL Normal [facility] Comment on above: Performed By: #### C ANGELICA, HSTROPN #### [facility] [address] [place] [address] Dr. Hunter Stewart Glucose [Mass/Vol] 128 mg/dL Critically high 74-106 [facility] Comment on above: Performed By: #### C ANGELICA, HSTROPN #### [facility] [address] [place] [address] Dr. Hunter Stewart Potassium [Moles/Vol] 4.4 mmol/L Normal 3.5-5.1 [facility] Comment on above: Performed By: #### C ANGELICA, HSTROPN #### [facility] [address] [address] [address] Hunter Stewart Protein [Mass/Vol] 5.9 g/dL Critically low 6.4-8.2 [facility] Comment on above: Performed By: #### C MP, HSTROPN #### [facility] [address] [address] [address] Hunter Stewart Sodium [Moles/Vol] 137 mmol/L Normal 136-145 [facility] Comment on above: Performed By: #### C MP, HSTROPN #### [facility] [address] [address] [address] Hunter Stewart Urea nitrogen [Mass/Vol] 29.0 mg/dL Critically high 7.0-18.0 [facility] Comment on above: Performed By: #### C MP, HSTROPN #### [facility] [address] [place] [address] Dr. Hunter Stewart Urea nitrogen/Creatinin e [Mass ratio] 14.9 mg/mg Normal [facility] Comment on above: Performed By: #### C MP, HSTROPN #### [facility] [address] [address] [address] Hunter Stewart T4on 10-27-2022 T4 [Mass/Vol] 5.90 ug/dL Normal 4.50-12.10 [facility] Comment on above: Performed By: #### T SH, T4 ####[facility] [address] [place] [address]Dr. Hunter Stewart TROPONIN, HIGH SENSITIVITYon 10-27-2022 HSTROP 12.3 pg/mL Normal 4.0-76.1 [facility] Comment on above: Result Comment: CUT- OFF POINTS HAVE BEEN ESTABLISHED BASED ON THE FOURTH UNIVERSAL DEFINITIONS OF MYOCARDIAL INFARCTION. THE UPPER REFERENCE LIMIT (URL) OF TROPONIN, DEFINED THE 99TH PERCENTILE OF cTnI DISTRIBUTION IN A REFERENCE POPULATION, HAS BEEN CONFIRMED THE DECISION THRESHOLD FOR GA DIAGNOSIS. Performed By: #### C MP, HSTROPN #### [facility] [address] [address] [address] Hunter Stewart TSHon 10-27-2022 TSH 1.459 uIU/mL Normal 0.358-3.740 [facility] Comment on above: Performed By: #### T , T4 ####[facility] [address] [place], [place] [address]Tm. Hunter Stewart US CAROTID ART BILon 023 US CAROTID ART CARMEN EXAMINATION: US PEPE TID ART CARMEN HISTORY: Transient cerebral ischemia COMPARISON: None. TECHNIQUE: Grayscale (B-mode) and duplex and spectral Doppler ultrasound of the extracranial internal carotid, external carotid, vertebral artery origins, right brachiocephalic/subclavi an and left subclavian arteries. Velocity measurements obtained with angle correction at or less than 60 degrees. Bilateral carotid arterial duplex examination was performed using B-mode, color flow and spectral analysis. Carotid stenosis is reported according to validated velocity parameters, similar to NASCET criteria. FINDINGS: Right CCA: 52 cm/sec ICA: 66 cm/sec Vertebral: 31 cm/sec antegrade ICA/CCA: 1.1 Left CCA: 46 cm/sec ICA: 38 cm/sec Vertebral: 32 cm/sec antegrade ICA/CCA: 0.7 Eccentric calcified plaque is seen at the proximal right CCA, as well as of both carotid bulbs and the left proximal ICA. IMPRESSION: No hemodynamically significant stenosis of the carotid arteries. There is mild calcified plaque. Consensus Panel Hester-Scale and Doppler US Criteria for Diagnosis of ICA Stenosis (Radiology 04/2003) additionally modified by Alisson et al. in Journal of Vascular Surgery 06/2010, [id number]. Normal ICA PSV < 140 cm/sec Plaque Estimate None ICA/CCA PSV Ratio < 2.0 ICA EDV < 40 cm/sec < 50% ICA PSV < 140 cm/sec Plaque Estimate < 50% ICA/CCA PSV Ratio < 2.0 ICA EDV < 40 cm/sec 50- 69% ICA PSV 140-230 cm/sec Plaque Estimate > or = 50% ICA/CCA PSV Ratio 2.0-4.0 ICA EDV 40-100 cm/sec > or = 70%, less than near occlusion ICA PSV > 230 cm/sec Plaque Estimate > or = 50% ICA/CCA Ratio > 4.0 ICA EDV > 100 cm/sec Additional criteria from vascular surgery > 80% EDV > 120 cm/sec Do not apply above criteria for post LVAD patients. Electronically authenticated by: RONA VINCENT Date: 2022-10-27 21:18 Normal [facility] XR CHEST 1 Von 10-27-2022 XR CHEST 1 V EXAM: Portable chest REASON FOR EXAM: Acute weakness today after falling out of a chair. TECHNIQUE: A portable frontal view of the chest was obtained. COMPARISON: None. FINDINGS: The lungs are well-inflated and grossly clear. The heart is at least mildly enlarged. There is no mass or pathologic adenopathy. Osseous structures are normal. IMPRESSION: No acute cardiopulmonary process. Mild cardiomegaly. Electronically authenticated by: BRIELLE CARVALHO Date: 2022-10-27 13:52 Normal [facility] Office Visit (Cardiology)on 09-13-2022 Follow-up visit Diagnoses/Problems Assessed Atherosclerosis of coronary artery (414.00) (I25.10) Supraventricular tachycardia (427.89) (I47.1) Essential hypertension (401.9) (I10) Hyperlipidemia (272.4) (E78.5) Mitral valve insufficiency (424.0) (I34.0) CKD (chronic kidney disease), stage III (585.3) (N18.30) Stroke syndrome Patent foramen ovale (745.5) (Q21.12) High risk medication use (V58.69) (Z79.899) Class 1 obesity with body mass index (BMI) of 31.0 to 31.9 in adult (278.00,V85.31) (E66.9,Z68.31) Never a smoker DVT (deep venous thrombosis) (453.40) (I82.409) Orders Class 1 obesity with body mass index (BMI) of 31.0 to 31.9 in adult Healthy Weight Tips; Status:Complete - Retrospective Authorization; Done: 13Sep2022 Some eating tips that can help you lose weight.; Status:Complete - Retrospective Authorization; Done: 13Sep2022 Essential hypertension, Supraventricular tachycardia Start: Metoprolol Tartrate 25 MG Oral Tablet; TAKE 1/2 TABLET ONE TIME DAILY SocHx: Never a smoker Tobacco Use Screening; Status:Complete; Done: 13Sep2022 Patient Instructions Please bring all medicines, vitamins, and herbal supplements with you when you come to the office. Prescriptions will not be filled unless you are compliant with your follow up appointments or have a follow up appointment scheduled as per instruction of your physician. Refills should be requested at the time of your visit. Reduce Metoprolol to 1/2 tablet one tablet daily Follow up in 6 months Chief Complaint ADRI BURNHAM is being seen for a 6 month follow-up of. Patient is in the office for follow-up accompanied by his for the problems noted below. His 's concern is that he is more tired and gets short of breath easier than usual. His pressure though is under control. His heart sounds are normal his lungs sounded normal. He has had recent lab data which I reviewed and the only abnormality was creatinine of 1.6 mg/dL which is chronic. He does not have sleep apnea. He has significant obesity as noted. His cardiovascular pulmonary examinations were normal. His clinical condition from the objective standpoint seems to be satisfactory. Obviously his advancing age is a factor against him. ASSESSMENT AND PLAN: 1?generalized fatigue due to deconditioning and lack of physical activities. Encouraged the patient to increase daily activities. And to lose weight. 2. History of left below knee DVT unprovoked. Jaz is on board. he will be on maintenance dose of 2.5 mg Twice daily for life, there has been no bleeding complications 3. Hypertension, presently under control, changes are needed. History of 4. History of Short runs of supraventricular tachycardia documented in the Holter monitor 2020 with no symptoms. Currently on beta-paul therapy, due to generalized fatigue reduce beta-paul therapy by 50%. 5. Mild mitral regurgitation, insignificant. Echocardiogram was last done June 2020 6. Mild obesity. Encouraged the patient to continue to be physically active and reduce calorie intake to control his weight 7. Stage III chronic kidney disease being monitored and nonprogressive, basic metabolic profile is reviewed with the patient and his 8. Remote history of stroke with no residual deficit. Currently on Plavix and statin with no recurrences 9. Mild atherosclerotic coronary heart disease based on cardiac catheterization 2011 revealing 30% LAD lesion., Nuclear stress test 2019 was normal he is on statin and Plavix which we will continue. No further cardiac investigations will be needed in that regard Dk Moffett MD, [facility] Surgical History Problems History of Complete colonoscopy History of Excision melanoma Past Medical History Problems History of Atherosclerosis of [place] coronary artery of [place] heart without angina pectoris (414.01) (I25.10) Resolved Date: 02 Aug 2021 History of Mixed hyperlipidemia (272.2) (E78.2) Resolved Date: 02 Aug 2021 Current Meds Medication NameInstruction Aspirin EC 81 MG Oral Tablet Delayed ReleaseTake 1 tablet on Sunday and Atorvastatin Calcium 10 MG Oral TabletTAKE 1 TABLET BY MOUTH EVERYDAY AT BEDTIME Clopidogrel Bisulfate 75 MG Oral TabletTAKE 1 TABLET DAILY. Eliquis 2.5 MG Oral TabletTake 1 tablet twice daily Finasteride 5 MG Oral TabletTAKE 1 TABLET BY MOUTH EVERY DAY Gabapentin 300 MG Oral CapsuleTAKE 1 CAPSULE BY MOUTH EVERYDAY AT BEDTIME Losartan Potassium 50 MG Oral TabletTAKE 1 TABLET DAILY. Metoprolol Tartrate 25 MG Oral TabletTAKE 1 TABLET BY MOUTH EVERY DAY Senna Smooth TABSUSE DIRECTED. Tamsulosin HCl - 0.4 MG Oral CapsuleTAKE 1 CAPSULE BY MOUTH EVERYDAY 30 MINUTES AFTER EVENING MEAL Allergies Medication No Known Drug Allergies Recorded By: Priscilla Messina; 06/21/2021 2:28:14 PM NonMedication No Known Food Allergies Recorded By: Priscilla Messina; 06/21/2021 2:28:14 PM Social History Problems Never a smoker No alcohol use No caffeine us (more content not included)... Normal [employer] Tobacco Screening.on 023 Adult depression screening assessment No [facility] [employer] DO Work Phone: Fall risk assessment a) No falls within the last year [facility] [employer] Work Phone: Tobacco use status CP b) No [facility] [employer] Work Phone: CBC AUTO DIFFon 09-07-2022 BASO # 0.0 103/ul Normal 0.0-0.1 [facility] Comment on above: Performed By: #### C BC ####[facility] [address] [place], [place] [address]QbMamadou Hunter Stewart Basophils/100 WBC (Bld) 0.4 % Normal 0.2-2.0 [facility] Comment on above: Performed By: #### C BC ####[facility] [address] [place] [address]Dr. Hunter Stewart EO # 0.1 103/ul Normal 0.0-0.7 [facility] Comment on above: Performed By: #### C BC ####[facility] [address] [place], [place] [address]Dr. Hunter Stewart Eosinophils/100 WBC (Bld) 1.6 % Normal 0.9-7.0 [facility] Comment on above: Performed By: #### C BC ####[facility] [address] [place], [place] [address]Dr. Hunter Stewart Erythrocyte distribution width (RBC) [Ratio] 13.7 % Normal 11.0-15.0 [facility] Comment on above: Performed By: #### C BC ####[facility] [address] [place], [place] [address]Dr. Hunter Stewart Hematocrit (Bld) [Volume fraction] 44.6 % Normal 42.0-54.0 [facility] Comment on above: Performed By: #### C BC ####[facility] [address] [place], [place] [address]Dr. Hunter Stewart Hemoglobin (Bld) [Mass/Vol] 15.3 g/dL Normal 14.0-18.0 [facility] Comment on above: Performed By: #### C BC ####[facility] [address] [place], [place] [address]Dr. Hunter Stewart IG # 0.03 10e3/ul Normal 0.00-0.03 [facility] Comment on above: Performed By: #### C BC ####[facility] [address] [place], [place] [address]Dr. Hunter Stewart IG % 0.4 % Normal 0.0-0.5 [facility] Comment on above: Performed By: #### C BC ####[facility] [address] [place], [place] [address]Dr. Hunter Stewart LYMPH # 1.7 103/ul Normal 1.2-3.8 [facility] Comment on above: Performed By: #### C BC ####[facility] [address] [place] [id number]. Hunter Terry Lymphocytes/100 WBC (Bld) 22.5 % Normal 20.5-60.0 [facility] Comment on above: Performed By: #### C BC ####[facility] [address] [address]Dr. Kimberlybryanna Stewart MANUAL DIFF REQ NO Normal [facility] Comment on above: Performed By: #### C BC ####[facility] [address] [address]Dr. Hunter Terry MCH (RBC) [Entitic mass] 32.2 pg Normal 25.9-34.0 [facility] Comment on above: Performed By: #### C BC ####[facility] [address] [place], [place] [address]Dr. Hunter Terry MCHC (RBC) [Mass/Vol] 34.3 g/dL Normal 29.9-35.2 [facility] Comment on above: Performed By: #### C BC ####[facility] [address] [place], [place] [address]Dr. Kimberlybryanna Stewart MCV (RBC) [Entitic vol] 93.9 fL Normal 80.0-94.0 [facility] Comment on above: Performed By: #### C BC ####[facility] [address] [place], [place] [address]Dr. Hunter Stewart MONO # 0.7 103/ul Normal 0.3-0.8 [facility] Comment on above: Performed By: #### C BC ####[facility] [address] [place], [place] [address]Dr. Kimberlybryanna Stewart Monocytes/100 WBC (Bld) 9.6 % Normal 1.7-12.0 [facility] Comment on above: Performed By: #### C BC ####[facility] [address] [place], [place] [address]Dr. Hunter Stewart NEUT # 4.9 103/ul Normal 1.4-6.5 [facility] Comment on above: Performed By: #### C BC ####[facility] [address] [address]Dr. Hunter Stewart Neutrophils/100 WBC (Bld) 65.5 % Normal 43.0-75.0 [facility] Comment on above: Performed By: #### C BC ####[facility] [address] [address]Dr. Hunter Stewart Platelet mean volume (Bld) [Entitic vol] 10.3 fL Normal 9.5-13.5 [facility] Comment on above: Performed By: #### C BC ####[facility] [address] [place] [address]Dr. Hunter Stewart PLT 163 103/ul Normal 150-450 [facility] Comment on above: Performed By: #### C BC ####[facility] [address] [address]Dr. Kimberlybryanna Terry RBC 4.75 106/ul Normal 4.70-6.10 [facility] Comment on above: Performed By: #### C BC ####[facility] [address] [address]Dr. Hunter Stewart WBC 7.4 103/ul Normal 4.0-11.0 [facility] Comment on above: Performed By: #### C BC ####[facility] [address] [address]Dr. Hunter Stewart LIPID PROFILEon 09-07-2022 CHOL-HDL RATIO NORM SEE BELOW Normal [facility] Comment on above: Result Comment: 3.3 - 4.4 LOW RISK 4.4 - 7.1 AVERAGE RISK 7.1 - 11.0 MODERATE RISK >11.0 HIGH RISK Performed By: #### A ST, ALT, LIPID, BMP #### [facility] [address] [address] [address] Hunter Stewart Cholesterol [Mass/Vol] 116 mg/dL Normal <=200 [facility] Comment on above: Performed By: #### A ST, ALT, LIPID, BMP #### [facility] [address] [address] [address] Hunter Stewart Cholesterol in HDL [Mass/Vol] 42 mg/dL Normal 40-60 [facility] Comment on above: Performed By: #### A ST, ALT, LIPID, BMP #### [facility] [address] [address] [address] Hunter Stewart Cholesterol in LDL [Mass/Vol] 60.6 mg/dL Normal [facility] Comment on above: Performed By: #### A ST, ALT, LIPID, BMP #### [facility] [address] [address] [address] Hunter Stewart Cholesterol.total/ Cholesterol in HDL [Mass ratio] 2.8 {ratio} Normal [facility] Comment on above: Performed By: #### A ST, ALT, LIPID, BMP #### [facility] [address] [address] [address] Hunter Stewart HDL NORMAL > or = 60 mg/dl - LO W CARDIOVASCULAR RISK <40 mg/dl - HIGH CARDIOVASCULAR RISK Normal [facility] Comment on above: Performed By: #### A ST, ALT, LIPID, BMP #### [facility] [address] [address] [address] Hunter Stewart LDL CALC NORMAL SEE BELOW Normal [facility] Comment on above: Result Comment: <100 mg/dl OPTIMAL 100 - 129 mg/dl NEAR OR ABOVE OPTIMAL 130 - 159 mg/dl BORDERLINE HIGH 160 - 189 mg/dl HIGH >190 mg/dl VERY HIGH Performed By: #### A ST, ALT, LIPID, BMP #### [facility] [address] [address] [address] Hunter Stewart Triglyceride [Mass/Vol] 67 mg/dL Normal <=150 [facility] Comment on above: Performed By: #### A ST, ALT, LIPID, BMP #### [facility] [address] [address] [address] Hunter Stewart VLDL CALC 13.4 mg/dL Normal [facility] Comment on above: Performed By: #### A ST, ALT, LIPID, BMP #### [facility] [address] [address] [address] Hunter Stewart PROF CHEM 8 (BAS METB)on Anion gap [Moles/Vol] 13.1 mmol/L Normal [facility] Comment on above: Performed By: #### A ST, ALT, LIPID, BMP #### [facility] [address] [address] [address] Hunter Stewart Calcium [Mass/Vol] 9.3 mg/dL Normal 8.5-10.1 [facility] Comment on above: Performed By: #### A ST, ALT, LIPID, BMP #### [facility] [address] [address] [address] Hunter Stewart Chloride [Moles/Vol] 106 mmol/L Normal 98-107 [facility] Comment on above: Performed By: #### A ST, ALT, LIPID, BMP #### [facility] [address] [place] [address] Dr. Hunter Stewart CO2 [Moles/Vol] 26.4 mmol/L Normal 21.0-32.0 [facility] Comment on above: Performed By: #### A ST, ALT, LIPID, BMP #### [facility] [address] [place] [address] Dr. Hunter Stewart Creatinine [Mass/Vol] 1.68 mg/dL Critically high 0.70-1.30 [facility] Comment on above: Performed By: #### A ST, ALT, LIPID, BMP #### [facility] [address] [place] [address] Dr. Hunter Stewart EGFR-AF RUSSIAN 47 mL/min/1.73m2 Critically low >=60 [facility] Comment on above: Performed By: #### A ST, ALT, LIPID, BMP #### [facility] [address] [place] [address] Dr. Hunter Stewart EGFR-NON AF RUSSIAN 39 mL/min/1.73m2 Critically low >=60 [facility] Comment on above: Performed By: #### A ST, ALT, LIPID, BMP #### [facility] [address] [place] [address] Dr. Hunter Stewart Glucose [Mass/Vol] 115 mg/dL Critically high 74-106 [facility] Comment on above: Performed By: #### A ST, ALT, LIPID, BMP #### [facility] [address] [place] [address] Dr. Hunter Stewart Potassium [Moles/Vol] 4.7 mmol/L Normal 3.5-5.1 [facility] Comment on above: Performed By: #### A ST, ALT, LIPID, BMP #### [facility] [address] [address] [address] Hunter Stewart Sodium [Moles/Vol] 140 mmol/L Normal 136-145 [facility] Comment on above: Performed By: #### A ST, ALT, LIPID, BMP #### [facility] [address] [place] [address] Dr. Hunter Stewart Urea nitrogen [Mass/Vol] 29.0 mg/dL Critically high 7.0-18.0 [facility] Comment on above: Performed By: #### A ST, ALT, LIPID, BMP #### [facility] [address] [place] [address] Dr. Hunter Stewart Urea nitrogen/Creatinin e [Mass ratio] 17.3 mg/mg Normal [facility] Comment on above: Performed By: #### A ST, ALT, LIPID, BMP #### [facility] [address] [place] [address] Dr. Hunter Garcia 09-07-2022 AST [Catalytic activity/Vol] 16 U/L Normal 15-37 [facility] Comment on above: Performed By: #### A ST, ALT, LIPID, BMP #### [facility] [address] [place] [address] Dr. Hunter HEMPHILLPTon 09-07-2022 ALT [Catalytic activity/Vol] 18 U/L Normal 16-63 [facility] Comment on above: Performed By: #### A ST, ALT, LIPID, BMP #### [facility] [address] [place] [address] Dr. Hunter Stewart US CAROTID ART BILon 022 US CAROTID ART CARMEN EXAMINATION: US PEPE TID ART CARMEN HISTORY: Cardiovascular symptoms COMPARISON: No relevant comparison available. TECHNIQUE: Duplex Doppler ultrasound analysis of carotid and vertebral arteries. . Bilateral carotid arterial duplex examination was performed using B-mode, color flow and spectral analysis. Carotid stenosis is reported according to validated velocity parameters, similar to NASCET criteria. FINDINGS: RIGHT CAROTID ARTERY Extensive diffuse atherosclerotic plaque.. High-grade stenosis proximal common carotid artery. Abnormal waveform Subclavian: PSV: 123.4 cm/s cm/s EDV: 0.0 cm/s cm/s CCA: Prox: PSV: 58.9 cm/s cm/s EDV: 11.6 cm/s cm/s Mid: PSV: 53.7 cm/s cm/s EDV: 12.7 cm/s cm/s Distal: PSV: 37.4 cm/s cm/s EDV: 6.1 cm/s cm/s BULB: PSV: 33.9 cm/s cm/s EDV: 6.1 cm/s cm/s ICA: Prox: PSV: 18.4 cm/s cm/s EDV: 8.0 cm/s cm/s Mid: PSV: 39.8 cm/s cm/s EDV: 15.1 cm/s cm/s Distal: PSV: 45.3 cm/s cm/s EDV: 22.5 cm/s cm/s ECA: PSV: 65.5 cm/s cm/s EDV: 8.5 cm/s cm/s VERTEBRAL: PSV: 20.5 cm/s cm/s EDV: 9.1 cm/s cm/s ICA/CCA ratio: PSV: 0.8 EDV: 1.8 LEFT CAROTID ARTERY Moderate atherosclerotic plaque. Abnormal waveform Subclavian: PSV: 68.1 cm/s cm/s EDV: 0.0 cm/s CCA: Prox: PSV: 71.9 cm/s cm/s EDV: 15.0 cm/s Mid: PSV: 49.0 cm/s cm/s EDV: 10.6 cm/s Distal: PSV: 40.2 cm/s cm/s EDV: 9.5 cm/s BULB: PSV: 36.3 cm/s cm/s EDV: 13.6 cm/s ICA: Prox: PSV: 37.2 cm/s cm/s EDV: 11.0 cm/s Mid: PSV: 20.8 cm/s cm/s EDV: 6.5 cm/s Distal: PSV: 22 cm/s EDV: 8 ECA: PSV: 59.0 cm/s cm/s EDV: 8.4 cm/s VERTEBRAL: PSV: 28.4 cm/s cm/s EDV: 9.2 cm/s ICA/CCA ratio: PSV: 0.8 EDV: 1.0 IMPRESSION: Extensive right and moderate left atherosclerotic plaque with abnormal waveforms. CT angiogram recommended for further evaluation. Spectral Doppler US Thresholds (Reference: Anthony EG, et al. Radiology 2000; 214:247-252) Stenosis (%) PSV (cm/sec) VICA/VCCA 0-49 <150 <2.5 50-69 150-225 2.5-4.0 >70 >225 >4.0 Electronically authenticated by: GITA MG Date: 2022-05-01 16:58 Normal [facility] MRI BRAIN WO W CONon 022 MRI BRAIN WO W CON EXAMINATION: MRI BRA IN WO W CON HISTORY: Dizziness and giddiness COMPARISON: 05/09/2017 TECHNIQUE: Multiplanar, multisequence MRI images of the brain were obtained without and with contrast. FINDINGS: There is a punctate diffusion hyperintense focus in the left occipital lobe. There is encephalomalacia at the right parietal occipital lobe, which is new. Multiple T2 hyperintense foci in the supratentorial white matter, slightly progressed. 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 Patchy T2 hyperintensity in the more anterior right cerebellum, with patchy enhancement. New mild cerebral atrophy. No pathologic enhancement. There is no midline shift, mass effect, or abnormal extraaxial fluid collections. Pituitary gland is not abnormally enlarged. There is no evidence for a Chiari I malformation. The orbital apices are clear. The flow voids of the pauma of Rdz are visualized, implying that the vessels are patent. IMPRESSION: 1. Tiny focus of acute to subacute infarction at the left occipital lobe. 2. Redemonstration of a large chronic infarct at the right cerebellum. There is T2 high signal with patchy enhancement in the more anterior aspect of the right cerebellum, suggestive of new adjacent enhancing subacute infarct compared to the prior exam. No hemorrhage. No mass effect. 3. New chronic appearing infarct at the right occipital lobe. Slight progression of mild chronic microvascular ischemia in the supratentorial white matter and mild generalized cerebral atrophy. Electronically authenticated by: BRYSON KITCHEN Date: 2022-04-18 22:21 Normal [facility] CREATININEon 04-18-2022 Creatinine [Mass/Vol] 1.87 mg/dL Critically high 0.70-1.30 [facility] Comment on above: Performed By: #### C RAJAN ####[facility] [address] [place], [place] [address]RyMamadou Stewart EGFR-AF RUSSIAN 42 mL/min/1.73m2 Critically low >=60 [facility] Comment on above: Performed By: #### C RAJAN ####[facility] [address] [place], [place] [address]QfMamadou Stewart EGFR-NON AF RUSSIAN 34 mL/min/1.73m2 Critically low >=60 [facility] Comment on above: Performed By: #### C RAJAN ####[facility] [address] [place], [place] [address]IuMamadou Stewart Office Visit (Cardiology)on 02-09-2022 Follow-up visit Diagnoses/Problems Assessed Atherosclerosis of coronary artery (414.00) (I25.10) Patent foramen ovale (745.5) (Q21.1) Stroke syndrome Supraventricular tachycardia (427.89) (I47.1) Mitral valve insufficiency (424.0) (I34.0) Hyperlipidemia (272.4) (E78.5) Essential hypertension (401.9) (I10) High risk medication use (V58.69) (Z79.899) CKD (chronic kidney disease), stage III (585.3) (N18.30) Never a smoker Class 1 obesity with body mass index (BMI) of 32.0 to 32.9 in adult (278.00,V85.32) (E66.9,Z68.32) DVT (deep venous thrombosis) (453.40) (I82.409) Orders Atherosclerosis of coronary artery Renew: Aspirin EC 81 MG Oral Tablet Delayed Release; Take 1 tablet on Sunday and Continue with our present treatment plan.; Status:Complete - Retrospective Authorization; Done: [id number] Atherosclerosis of coronary artery, Essential hypertension Renew: Losartan Potassium 50 MG Oral Tablet; TAKE 1 TABLET DAILY Atherosclerosis of coronary artery, Essential hypertension, High risk medication use Basic Metabolic Panel; Status:Active - Retrospective Authorization; Requested for:[id number]; Complete Blood Count; Status:Active - Retrospective Authorization; Requested for:31Jul2022; Atherosclerosis of coronary artery, Hyperlipidemia Renew: Atorvastatin Calcium 10 MG Oral Tablet; TAKE 1 TABLET BY MOUTH EVERYDAY AT BEDTIME ALT - Alanine Aminotransferase, Serum; Status:Active - Retrospective Authorization; Requested for:31Jul2022; AST; Status:Active - Retrospective Authorization; Requested for:31Jul2022; Lipid Panel; Status:Active - Retrospective Authorization; Requested for:31Jul2022; Class 1 obesity with body mass index (BMI) of 32.0 to 32.9 in adult Healthy Weight Tips; Status:Complete - Retrospective Authorization; Done: [id number] Some eating tips that can help you lose weight.; Status:Complete - Retrospective Authorization; Done: [id number] SocHx: Never a smoker Tobacco Use Screening; Status:Complete; Done: [id number] Patient Instructions Please bring all medicines, vitamins, and herbal supplements with you when you come to the office. Prescriptions will not be filled unless you are compliant with your follow up appointments or have a follow up appointment scheduled as per instruction of your physician. Refills should be requested at the time of your visit. Follow up in 6 months Chief Complaint ADRI BURNHAM is being seen for a 6 month follow-up of. Patient is in the office with his for follow-up for the problems noted below. He is better than last visit but his main complaint is fatigue. He is known to have mild CAD not exceeding 30% by cardiac catheterization in the past with no history of heart failure for LV systolic dysfunction. The patient has been anticoagulated without any bleeding problems or recurrent DVT and his blood pressure is under control. He denies any palpitations orthopnea PND or lower extremity edema. His weight remains above target something that brought his attention. His fatigue is something that is probably related to his inactivity. Encouraged the patient to increase daily activities if he can. ASSESSMENT AND PLAN: 1?generalized fatigue due to deconditioning and lack of physical activities. Encouraged the patient to increase daily activities. 2. History of left below knee DVT unprovoked. Jaz is on board. he will be on maintenance dose of 2.5 mg Twice daily for life, there has been no bleeding complications 3. Hypertension, presently under control, changes are needed. History of 4. Short runs of supraventricular tachycardia documented in the Holter monitor 2020 with no symptoms. Currently on beta-paul therapy 5. Mild mitral regurgitation, nonsignificant. Echocardiogram was last done June 2020 6. Mild obesity. Encouraged the patient to continue to be physically active and reduce calorie intake to control his weight 7. Stage III chronic kidney disease being monitored and nonprogressive, basic metabolic profile is ordered 8. Remote history of stroke with no residual deficit. Currently on aspirin and statin 9. Mild atherosclerotic coronary heart disease based on cardiac catheterization 2011 revealing 30% LAD lesion., Nuclear stress test 2019 was normal he is on statin and aspirin which we will continue. No further cardiac investigations will be needed in that regard Dk Moffett MD, [facility] Surgical History Problems History of Complete colonoscopy History of Excision melanoma Past Medical History Problems History of Atherosclerosis of [place] coronary artery of [place] heart without angina pectoris (414.01) (I25.10) Resolved Date: 02 Aug 2021 History of Mixed hyperlipidemia (272.2) (E78.2) Resolved Date: 02 Aug 2021 Current Meds Medication NameInstruction Aspirin EC 81 MG Oral Tablet Delayed ReleaseTake 1 tablet on Sunday and Atorvastatin Calcium 10 MG Oral TabletTAKE 1 TABLET BY MOUTH EVERYDAY AT BEDTIME Eliquis 2.5 MG O (more content not included)... Normal [employer] Tobacco Screening.on 022 Fall risk assessment a) No falls within the last year [facility] [employer] DO Work Phone: Tobacco use status CP b) No [facility] [employer] DO Work Phone: Tobacco Screening.on 022 Adult depression screening assessment No [facility] [employer] 250 DO Work Phone: Fall risk assessment b) One or more falls in the last year [facility] [employer] 250 DO Work Phone: Tobacco use status [facility]PH[facility] b) No [facility] [employer] 250 DO Work Phone: Vital Signs Date Time Vital Sign Value Performing Clinician Facility 01-23-2024 12:110400 Body height 175.26 cm [facility] 01-23-2024 12:110400 Body mass index (BMI) [Ratio] 29.7 kg/m2 [facility] 01-23-2024 12:110400 Body weight 91.17 kg [facility] 01-23-2024 12:11-0400 Diastolic blood pressure 80 mm[Hg] [facility] 01-23-2024 12:11-0400 Heart rate 76 /min [facility] 01-23-2024 12:11-0400 Respiratory rate 12 /min [facility] 01-23-2024 12:11-0400 Systolic blood pressure 129 mm[Hg] [facility] 10-16-2023 10:38-0400 Diastolic blood pressure 62 mm[Hg] Dk Moffett MD Work Phone: [facility] 10-16-2023 10:38-0400 Systolic blood pressure 112 mm[Hg] Dk Moffett MD Work Phone: [facility] 10-16-2023 10:34-0400 Body height 175.3 cm Dk Moffett MD Work Phone: [facility] 10-16-2023 10:34-0400 Body mass index (BMI) [Ratio] 30.13 kg/m2 Dk Moffett MD Work Phone: [facility] 10-16-2023 10:34-0400 Body weight 92.53 kg Dk Moffett MD Work Phone: [facility] 10-16-2023 10:34-0400 Heart rate 54 /min Dk Moffett MD Work Phone: [facility] 10-04-2023 11:010400 Body height 175.26 cm [facility] 10-04-2023 11:010400 Body mass index (BMI) [Ratio] 29.7 kg/m2 [facility] 10-04-2023 11:01-0400 Body weight 91.39 kg [facility] 10-04-2023 11:01-0400 Diastolic blood pressure 96 mm[Hg] [facility] 10-04-2023 11:01-0400 Heart rate 67 /min [facility] 10-04-2023 11:01-0400 Respiratory rate 12 /min [facility] 10-04-2023 11:01-0400 Systolic blood pressure 142 mm[Hg] [facility] 10-02-2023 12:17-0400 Blood Pressure Location Shyann Orzech [facility] 10-02-2023 12:17-0400 Body temperature 97.16 [degF] Shyann Orzech [facility] 10-02-2023 12:17-0400 Diastolic blood pressure 85 mm[Hg] Shyann Orzech [facility] 10-02-2023 12:17-0400 Heart rate 58 /min Shyann Orzech [facility] 10-02-2023 12:17-0400 Respiratory rate 19 /min Shyann Orzech [facility] 10-02-2023 12:17-0400 Systolic blood pressure 132 mm[Hg] Shyann Orzech [facility] 07-04-2023 11:00-0500 Body height 175.26 cm Sanya Ball Other [employer] [facility] [employer] Other 07-04-2023 11:00-0500 Body mass index (BMI) [Ratio] 30.12 kg/m2 Sanya Ball Other [employer] [facility] [employer] Other 07-04-2023 11:00-0500 Body weight 92.53 kg Sanya Ball Other [employer] Other 07-04-2023 11:00-0500 Diastolic blood pressure 73 mm[Hg] Sanya Ball Other [employer] Other 07-04-2023 11:00-0500 Respiratory rate 12 /min Sanya Ball Other [employer] Other 07-04-2023 11:00-0500 Systolic blood pressure 102 mm[Hg] Sanya Ball Other [employer] Other 05-04-2023 09:45-0500 Body height 175.26 cm Sanya Ball Other [employer] Other 05-04-2023 09:45-0500 Body mass index (BMI) [Ratio] 30.33 kg/m2 Sanya Ball Other [employer] Other 05-04-2023 09:45-0500 Body weight 93.17 kg Sanya Ball Other [employer] Other 05-04-2023 09:45-0500 Diastolic blood pressure 84 mm[Hg] Sanya Ball Other [employer] Other 05-04-2023 09:45-0500 Respiratory rate 12 /min Sanya Ball Other [employer] Other 05-04-2023 09:45-0500 Systolic blood pressure 155 mm[Hg] Sanya Ball Other [employer] Other 12-27-2022 11:00-0400 Body height 175.26 cm Sanya Ball Other [employer] Other 12-27-2022 11:00-0400 Body mass index (BMI) [Ratio] 31.19 kg/m2 Sayna Ball Other [employer] Other 12-27-2022 11:00-0400 Body weight 95.8 kg Sanya Ball Other [employer] Other 12-27-2022 11:00-0400 Diastolic blood pressure 89 mm[Hg] Sanya Ball Other [employer] Other 12-27-2022 11:00-0400 Respiratory rate 12 /min Sanya Ball Other [employer] Other 12-27-2022 11:00-0400 Systolic blood pressure 133 mm[Hg] Sanya Ball Other [employer] Other 11-10-2022 10:15-0400 Body height 175.26 cm Sanya Ball Other [employer] Other 11-10-2022 10:15-0400 Body mass index (BMI) [Ratio] 30.92 kg/m2 Sanya Ball Other [employer] Other 11-10-2022 10:15-0400 Body weight 94.98 kg Sanya Ball Other [employer] Other 11-10-2022 10:15-0400 Diastolic blood pressure 81 mm[Hg] Sanya Ball Other [employer] Other 11-10-2022 10:15-0400 Respiratory rate 12 /min Sanya Ball Other [employer] Other 11-10-2022 10:15-0400 Systolic blood pressure 137 mm[Hg] Sanya Ball Other [employer] Other 09-28-2022 12:00-0400 Body height 175.26 cm Sanya Ball Other [employer] Other 09-28-2022 12:00-0400 Body mass index (BMI) [Ratio] 31.6 kg/m2 Sanya Ball Other [employer] Other 09-28-2022 12:00-0400 Body weight 97.07 kg Sanya Ball Other [employer] Other 09-28-2022 12:00-0400 Diastolic blood pressure 78 mm[Hg] Sanya Ball Other [employer] Other 09-28-2022 12:00-0400 Respiratory rate 12 /min Sanya Ball Other [employer] Other 09-28-2022 12:00-0400 Systolic blood pressure 117 mm[Hg] Sanya Ball Other [employer] Other 09-13-2022 11:30-0400 Body height 175.26 cm Sanya E Ball Work Phone: [employer] [employer] 250 DO Work Phone: 09-13-2022 11:30-0400 Body mass index (BMI) [Ratio] 31.45 kg/m2 Sanya E Ball Work Phone: [employer] [employer] 250 DO Work Phone: 09-13-2022 11:30-0400 Body surface area Derived from formula 2.12 m2 Sanya E Ball Work Phone: [employer] [employer] 250 DO Work Phone: 09-13-2022 11:30-0400 Body weight 96.62 kg Sanya E Ball Work Phone: [facility] [employer] 250 DO Work Phone: 09-13-2022 11:30-0400 Diastolic blood pressure 68 mm[Hg] Sanya E Ball Work Phone: [facility] 250 DO Work Phone: 09-13-2022 11:30-0400 Heart rate 68 /min Sanya E Ball Work Phone: [facility] 250 DO Work Phone: 09-13-2022 11:30-0400 Systolic blood pressure 128 mm[Hg] Sanya E Ball Work Phone: [facility] 250 DO Work Phone: 09-07-2022 00:00-0400 60 1 Sanya E Ball Work Phone: [facility] 250 DO Work Phone: Comment on above: [facility] 07-03-2022 13:51-0500 Blood Pressure Location Rojeliolisette MARK [facility] 07-03-2022 13:51-0500 Diastolic blood pressure 70 mm[Hg] Rojelio MARK [facility] 07-03-2022 13:51-0500 Heart rate 72 /min Rojelio MARK [facility] 07-03-2022 13:51-0500 Respiratory rate 16 /min Rojeliolisette MARK [facility] 07-03-2022 13:51-0500 Systolic blood pressure 111 mm[Hg] Rojelio MARK [facility] 06-28-2022 12:15-0500 Body height 175.26 cm Sanya Nuno Other [employer] Other 06-28-2022 12:15-0500 Body mass index (BMI) [Ratio] 32.01 kg/m2 Sanya Ball Other [employer] Other 06-28-2022 12:15-0500 Body weight 98.34 kg Sanya Ball Other [employer] Other 06-28-2022 12:15-0500 Diastolic blood pressure 70 mm[Hg] Sanya Ball Other [employer] Other 06-28-2022 12:15-0500 Respiratory rate 12 /min Sanya Ball Other [facility] [employer] Other 06-28-2022 12:15-0500 Systolic blood pressure 112 mm[Hg] Sanya Ball Other [facility] [employer] Other 02-09-2022 10:42-0400 Body height 175.26 cm Sanya E Ball Work Phone: [employer] [employer] 250 DO Work Phone: 02-09-2022 10:42-0400 Body mass index (BMI) [Ratio] 32.67 kg/m2 Sanya E Ball Work Phone: [employer] [employer] 250 DO Work Phone: 02-09-2022 10:42-0400 Body surface area Derived from formula 2.16 m2 Sanya E Ball Work Phone: [employer] 250 DO Work Phone: 02-09-2022 10:42-0400 Body weight 100.36 kg Sanya E Ball Work Phone: [employer] [employer] 250 DO Work Phone: 02-09-2022 10:42-0400 Diastolic blood pressure 68 mm[Hg] Sanya E Ball Work Phone: [facility] [employer] 250 DO Work Phone: 02-09-2022 10:42-0400 Systolic blood pressure 132 mm[Hg] Sanya Schofield Yaakov Work Phone: [facility] 250 DO Work Phone: 12-26-2021 13:38-0400 Blood Pressure Location Rojelio MARK [facility] 12-26-2021 13:38-0400 Diastolic blood pressure 88 mm[Hg] Rojelio MARK [facility] 12-26-2021 13:38-0400 Heart rate 72 /min Rojelio MARK [facility] 12-26-2021 13:38-0400 Respiratory rate 16 /min Rojelio MARK [facility] 12-26-2021 13:38-0400 Systolic blood pressure 134 mm[Hg] Rojelio MARK [facility] 08-08-2021 09:28-0500 60.6 1 Sanya Schofield Yaakov Work Phone: [facility] 250 DO Work Phone: Comment on above: [facility] 08-02-2021 13:30-0500 Body height 175.26 cm Sanya Nuno Work Phone: [facility] 250 DO Work Phone: 08-02-2021 13:30-0500 Body mass index (BMI) [Ratio] 32.64 kg/m2 Sanya Schofield Ball Work Phone: [facility] 250 DO Work Phone: 08-02-2021 13:30-0500 Body surface area Derived from formula 2.16 m2 Sanya Nuno Work Phone: [facility] 250 DO Work Phone: 08-02-2021 13:30-0500 Body weight 100.25 kg Sanya Nuno Work Phone: [facility] 250 DO Work Phone: 08-02-2021 13:30-0500 Diastolic blood pressure 94 mm[Hg] Sanya Nuno Work Phone: [facility] 250 DO Work Phone: 08-02-2021 13:30-0500 Heart rate 73 /min Sanya Nuno Work Phone: [facility] 250 DO Work Phone: 08-02-2021 13:30-0500 Systolic blood pressure 160 mm[Hg] Sanya Nuno Work Phone: [facility] 250 DO Work Phone: Encounters Encounter Date Encounter Type Care Provider Facility Start: 01-23-2024 End: 01-23-2024 ambulatory [facility] Work Phone: Start: 01-23-2024 End: 01-23-2024 Patient encounter procedure [facility] Work Phone: Start: 11-22-2023 End: 11-22-2023 ambulatory ARCHANA VAZQUEZ Not Available Start: 10-17-2023 End: 10-17-2023 ambulatory TEENA LYNCH Not Available Start: 10-16-2023 End: 10-16-2023 ambulatory DK Higginbotham [facility] Start: 10-16-2023 End: 10-16-2023 Office outpatient visit 25 minutes Dk Moffett MD Work Phone: [facility] Comment on above: Atherosclerosis of c oronary artery, unspecified vessel or lesion type, unspecified whether angina present, unspecified whether [place] or transplanted heart; Permanent atrial fibrillation (Multi); Essential hypertension; Mixed hyperlipidemia; Mitral valve insufficiency, unspecified etiology; Patent foramen ovale (HHS-HCC); Stage 3b chronic kidney disease (Multi); Atherosclerotic heart disease of [place] coronary artery without angina pectoris; Deep vein thrombosis (DVT) of lower extremity, unspecified chronicity, unspecified laterality, unspecified vein (Multi); BMI 30.0-30.9,adult Start: 10-09-2023 End: 10-09-2023 ambulatory TONASUSAN KERRY Not Available Start: 10-04-2023 End: 10-04-2023 ambulatory [facility] Work Phone: Start: 10-04-2023 End: 10-04-2023 Patient encounter procedure [facility] Work Phone: Start: 10-02-2023 End: 10-03-2023 ambulatory Shyann X Orgiovannich Facility:[facility] Start: 10-02-2023 End: 10-02-2023 Patient encounter procedure Shyann X Orzech [facility] Start: 09-19-2023 End: 09-19-2023 ambulatory RANI RILEY Not Available Start: 09-18-2023 End: 09-19-2023 ambulatory JANICE WILLIAMSON Facility:[facility] Start: 09-18-2023 End: 09-18-2023 Patient encounter procedure JANICE WILLIAMSON [facility] Start: 09-13-2023 End: 09-13-2023 ambulatory ARCHANA VAZQUEZ Not Available Start: 09-11-2023 Non-patient / Non-visit [facility] Work Phone: Start: 07-05-2023 End: 07-05-2023 ambulatory ARCHANA VAZQUEZ Not Available Start: 07-04-2023 End: 07-04-2023 ambulatory Sanya Nuno Other [employer] Other Start: 07-04-2023 Office outpatient vi sit 25 minutes Sanya Nuno [facility] Start: 05-06-2023 End: 05-06-2023 ambulatory Sanya Nuno Other [employer] Other Start: 05-06-2023 Telephone encounter Sanya [facility] Start: 05-04-2023 End: 05-04-2023 ambulatory Sanya Nuno Other [employer] Other Start: 05-04-2023 Office outpatient vi sit 15 minutes Sanya Nuno [facility] Start: 01-02-2023 End: 01-02-2023 ambulatory Sanya Nuno Other [employer] Other Start: 01-02-2023 Telephone encounter Sanya SHAW [facility] Start: 01-01-2023 End: 01-01-2023 ambulatory Sanya Nuno Other [employer] Other Start: 01-01-2023 Telephone encounter Sanya [facility]AW [facility] Start: 12-27-2022 End: 12-27-2022 ambulatory Sanya Nuno Other [employer] Other Start: 12-27-2022 Patient encounter procedure Sanya Nuno [facility] Start: 12-11-2022 Rx Renewal Sanya Schofield Bal l Work Phone: [facility] 250 DO Work Phone: Start: 11-16-2022 End: 11-16-2022 ambulatory Sanya Nuno Other [employer] Other Start: 11-16-2022 Telephone encounter Sanya SHAW [facility] Start: 11-14-2022 End: 11-15-[address] SANYA NUNO Facility: Start: 11-10-2022 End: 11-10-2022 ambulatory Sanya Nuno Other [employer] Other Start: 11-10-2022 Office outpatient vi sit 15 minutes Sanya Nuno [facility] Start: 11-03-2022 End: 11-04-[address] SANYA NUNO Facility:[facility] Start: 10-31-2022 End: 10-31-2022 ambulatory Sanya Nuno Other [employer] Other Start: 10-31-2022 Telephone encounter [facility] Start: 10-27-2022 End: 10-28-[address] SANYA NUNO Facility:[facility] Start: 09-28-2022 End: 09-28-2022 ambulatory Sanya Nuno Other [employer] Other Start: 09-28-2022 Office outpatient vi sit 25 minutes Sanya Nuno [facility] Start: 09-13-2022 Office outpatient vi sit 25 minutes Sanya Nuno Work Phone: [facility] 250 DO Work Phone: Start: 09-13-2022 ambulatory Dk Moffett Facility :[id number] Start: 09-07-2022 End: 09-08-[address] SANYA NUNO Facility:[facility] Start: 07-03-2022 End: 07-03-2022 Patient encounter procedure Rojelio MARK [facility] Start: 06-28-2022 End: 06-28-2022 ambulatory Sanya Nuno Other [employer] Other Start: 06-28-2022 Office outpatient vi sit 25 minutes Sanya Nuno [facility] Start: 06-22-2022 End: 06-22-2022 ambulatory Sanya Nuno Other [employer] Other Start: 06-22-2022 Telephone encounter Sanya SHAW [facility] Start: 06-18-2022 End: 08-19-[address] SANYA NUNO Facility:[facility] Start: 06-07-2022 Rx Renewal Sanya Pino l Work Phone: [facility] 250 DO Work Phone: Start: 04-29-2022 End: 04-30-[address] SANYA NUNO Facility:[facility] Start: 04-18-2022 End: 04-19-[address] SANYA NUNO Facility:[facility] Start: 04-05-2022 End: 06-17-[address] SANYA NUNO Facility:[facility] Start: 02-09-2022 Office outpatient vi sit 25 minutes Sanya Nuno Work Phone: [facility] 250 DO Work Phone: Start: 02-09-[address] Sanya Nuno Facility: Start: 12-26-2021 End: 12-26-2021 Patient encounter procedure Rojelio MARK [facility] Start: 10-05-2021 Adult health examination Alvaro Nuno Other [facility] [employer] Other Start: 08-12-2021 Rx Renewal Sanya Schofield Bal l Work Phone: [facility] 250 DO Work Phone: Start: 08-02-2021 Office outpatient vi sit 25 minutes Sanya Nuno Work Phone: [facility] 250 DO Work Phone: Start: 08-02-2021 Patient encounter procedure Sanya Nuno Work Phone: [facility] 250 DO Work Phone: Start: 03-23-2021 Rx Renewal Sanya Schofield Bal l Work Phone: [facility] 250 DO Work Phone: Start: 12-11-2017 Ambulatory DK MOFFETT Facility :[id number] Start: 08-01-2017 End: 08-02-2017 Ambulatory DEFAULT PHYSICIAN Facility:[facility] Procedures Date Procedure Procedure Detail Performing Clinician Start: 10-16-2023 FOLLOW UP IN CARDIOLOGY DK MOFFETT Start: 07-14-2020 Echocardiography Start: 02-04-2015 Screening for malign ant neoplasm of prostate Sanya Nuno Other Colonoscopy Rojelio MARK Depression screening Ana Nuno Other Excision of melanoma Ana Nuno Work Phone: Extraction of cataract Luci MARK Total colonoscopy Sanya Nuno Work Phone: Plan of Treatment Date Care Activity Detail Author Start: 06-22-2031 DTaP/Tdap/Td Vaccine s (3 - Td or Tdap) DTaP/Tdap/Td Vaccines (3 - Td or Tdap) [facility] Start: 09-22-2024 ambulatory Ambulatory Facility:[facility] Start: 05-08-2024 End: 05-08-2024 Patient encounter procedure 05/08/2024 10:50 AM EST Office Visit [facility] [address] [address] Dk Moffett MD 703 [facility] [address], [address] [address] [facility] Start: 08-17-2023 COVID-19 Vaccine ( season) COVID-19 Vaccine ( season) [facility] Start: 04-03-2023 FUV, Provider: Dk Moffett, Status: Pen, Time: 11:50 AM FUV, Provider: Dk Moffett, Status: Pen, Time: 11:50 AM [facility] 250 DO Work Phone: Start: 09-13-2022 FUV, Provider: Dk Moffett, Status: Pen, Time: 11:20 AM FUV, Provider: Dk Moffett, Status: Pen, Time: 11:20 AM [facility] 250 DO Work Phone: Start: 02-09-2022 FUV, Provider: Dk Moffett, Status: Pen, Time: 10:50 AM FUV, Provider: Dk Moffett, Status: Pen, Time: 10:50 AM [facility] 250 DO Work Phone: Start: 08-02-2021 FUV, Provider: Dk Moffett, Status: Pen, Time: 1:15 PM FUV, Provider: Dk Moffett, Status: Pen, Time: 1:15 PM [facility] 250 DO Work Phone: Start: 05-24-2020 Zoster Vaccines (2 o f 3) Zoster Vaccines (2 of 3) [facility] Start: 1994 RSV patient s and/or patients aged 60+ years (1 - 1-dose 60+ series) RSV patients and/or patients aged 60+ years (1 - 1-dose 60+ series) [facility] Start: 02-04-1952 Diabetes mellitus screening Diabetes Screening [facility] Start: 1934 Lipid panel Lipid Panel [facility] Start: 1935 Medicare Annual Wellness Visit Medicare Annual Wellness Visit (AWV) [facility] Immunizations Immunization Date Immunization Notes Care Provider Hugh garcia 03-28-2023 influenza virus vaccine, unspecified formulation [facility] 03-28-2023 influenza, high dose seasonal, preservative-free Sanya Nuno Other [employer] [facility] [employer] Other 06-18-2022 influenza virus vaccine, unspecified formulation JANICE WILLIAMSON [facility] 05-25-2022 COVID-19 Pfizer (Pediatric) Sanya Nuno Other [facility] 05-25-2022 Pfizer COVID-19 Vac Bivalent 30 MCG/0.3ML Intramuscular Suspension Sanya Nuno Work Phone: [place] [address] DO Work Phone: 04-12-2022 Fluad Quadrivalent 0 .5 ML Intramuscular Prefilled Syringe Sanya Nuno Work Phone: [place] [address] DO Work Phone: 04-12-2022 influenza virus vaccine, split virus (incl. purified surface antigen) Sanya Nuno Other [facility] [employer] Other 04-12-2022 influenza virus vaccine, unspecified formulation [facility] 06-22-2021 diphtheria, tetanus toxoids and pertussis vaccine Sanya Nuno Work Phone: [place] [address] DO Work Phone: 06-22-2021 tetanus toxoid, redu niesha diphtheria toxoid, and acellular pertussis vaccine, adsorbed Dk Moffett MD Work Phone: [facility] Work Phone: 04-07-2021 SARS-CoV-2 (COVID-19 ) mRNA BNT-162b2 vax Rojelio MARK [facility] 03-30-2021 influenza virus vaccine, split virus (incl. purified surface antigen) Sanya Nuno Other [facility] [employer] Other 03-30-2021 influenza virus vaccine, unspecified formulation [facility] 03-30-2021 Seasonal trivalent influenza vaccine, adjuvanted, preservative free Sanya Nuno Work Phone: [place] [address] DO Work Phone: 03-19-2021 Pfizer-BioNTWebKite COVID-19 Vacc 30 MCG/0.3ML Intramuscular Suspension Sanya Nuno Work Phone: [place] [address] DO Work Phone: 03-18-2021 influenza virus vaccine, unspecified formulation Rojelio MARK [facility] 10-12-2020 tetanus and diphther ia toxoids, adsorbed, preservative free, for adult use (5 Lf of tetanus toxoid and 2 Lf of diphtheria toxoid) Sanya Nuno Other [facility] 07-31-2020 SARS-CoV-2 (COVID-19 ) mRNA BNT-162b2 vax Rojelio MARK [facility] 07-30-2020 Pfizer-BioNTech COVID-19 Vacc 30 MCG/0.3ML Intramuscular Suspension Sanya Nuno Work Phone: [facility] [employer] 250 DO Work Phone: 07-10-2020 Pfizer-BioNTech COVID-19 Vacc 30 MCG/0.3ML Intramuscular Suspension Sanya Nuno Work Phone: [facility] [employer] 250 DO Work Phone: 03-31-2020 influenza virus vaccine, split virus (incl. purified surface antigen) Sanya Nuno Other [facility] [employer] Other 03-31-2020 influenza virus vaccine, unspecified formulation Sanya Nuno Work Phone: [facility] 03-31-2020 influenza, seasonal, injectable Dk Moffett MD Work Phone: [facility] Work Phone: 03-29-2020 zoster vaccine, live Benjami christopher Nuno [facility] Work Phone: 03-31-2019 influenza virus vaccine, live, attenuated, for intranasal use Rojelio MARK [facility] 03-18-2019 influenza virus vaccine, unspecified formulation Sanya Nuno Work Phone: [place] [address] DO Work Phone: 03-14-2019 influenza, high dose seasonal, preservative-free kD Moffett MD Work Phone: [facility] Work Phone: 03-14-2019 pneumococcal conjuga te vaccine, 13 valent Sanya E Yaakov Work Phone: [place] [address] DO Work Phone: 06-18-2018 pneumococcal conjuga te vaccine, 13 valent Sanya E Yaakov Work Phone: [place] [address] DO Work Phone: 04-16-2018 influenza virus vaccine, split virus (incl. purified surface antigen) Sanya Nuno Other [facility] [employer] Other 04-16-2018 influenza virus vaccine, unspecified formulation [facility] 04-16-2018 Seasonal trivalent influenza vaccine, adjuvanted, preservative free Sanya Nuno Work Phone: [place] [address] DO Work Phone: 03-18-2018 influenza virus vaccine, unspecified formulation Sanya Nuno Work Phone: [place] [address] DO Work Phone: 04-26-2017 influenza virus vaccine, split virus (incl. purified surface antigen) Sanya Nuno Other [facility] [employer] Other 04-26-2017 influenza virus vaccine, unspecified formulation [facility] 04-18-2017 influenza virus vaccine, unspecified formulation Sanya E Yaakov Work Phone: [place] [address] DO Work Phone: 06-18-2015 pneumococcal conjuga te vaccine, 13 valent Sanya E Yaakov Work Phone: [facility] [employer] 250 DO Work Phone: 05-20-2015 influenza virus vaccine, split virus (incl. purified surface antigen) Sanya Nuno Other [facility] [employer] Other 05-20-2015 influenza virus vaccine, unspecified formulation [facility] 05-20-2015 influenza, seasonal, injectable, preservative free Sanya Nuno Work Phone: [facility] [employer] 250 DO Work Phone: 04-01-2014 pneumococcal polysaccharide vaccine, 23 valent Sanya Nuno Other [facility] Payers Date Payer Category Payer Unknown 2011 Unknown [id number] 1999 Medicare MEDICARE MEDICAR E PART A AND B [id number] 1999-Present [address] [place] [address] [id number] 1959 Medicare [id number] 1959 Unknown [id number] 2.16.8 [id number] 1934 Unknown [id number] [id number] 1934 Unknown [id number] [id number] 1934 Unknown [id number] 2.16.840.1.900587.3.579.2.593 1934 Unknown [id number] 2.16.840.1.292247.3.579.2.593 1934 Unknown [id number] 2.16.840.1.514091.3.579.2.593 1934 Unknown [id number] 2.16.840.1.108758.3.579.2.593 1934 Unknown [id number] 2.16.840.1.350783.3.579.2.593 1934 Unknown [id number] 2.16.840.1.762549.3.579.2.593 1934 Unknown [id number] 2.16.840.1.706076.3.579.2.593 1934 Unknown [id number] 2.16.840.1.299947.3.579.2.593 1934 Unknown [id number] 2.16.840.1.703141.3.579.2.727 1934 Unknown [id number] 2.16.840.1.036043.3.579.2.727 1934 Unknown [id number] 2.16.840.1.984800.3.579.2.727 1934 Unknown [id number] 2.16.840.1.602155.3.579.2.1244 1934 Unknown [id number] 2.16.840.1.863845.3.579.2.1259 1934 Unknown [id number] 2.16.840.1.905372.3.579.2.1259 1934 Unknown [id number] 2.16.840.1.335341.3.579.2.1259 1934 Unknown [id number] 2.16.840.1.637201.3.579.2.1259 1934 Unknown [id number] 2.16.840.1.800939.3.579.2.1259 1934 Unknown [id number] [id number] Medicare [id number] Social History Date Type Detail Facility Start: 04-03-2023 End: 10-16-2023 No alcohol use No alcohol use -[facility] DO Work Phone: Start: 07-17-2019 End: 09-11-2023 Tobacco smoking status Never smoked tobacco (finding) [facility] Start: 04-03-2023 End: 10-16-2023 Sex Assigned At Male [facility] Start: 1935 Sex Assigned At Male F [facility] Start: 04-03-2023 Tobacco use and exposure Smokeless tobacco non-user [facility] Work Phone: Start: 10-16-2023 Alcoholic beverage intake Lifetime non-drinker (finding) [facility] Work Phone: Start: 1935 Sex assigned at Not on file [facility] Work Phone: Start: 10-06-2023 End: 10-16-2023 Exposure to SARS-CoV-2 (event) Not sure [facility] Functional Status Date Assessment Result Facility 10-02-2023 Functional Status N/A [facility] 09-18-2023 Functional Status N/A [facility] 07-03-2022 Functional Status N/A [facility] 12-26-2021 Functional Status N/A [facility] Clinical Notes 12-26-2021 to 10-16-2023 Dk Moffett MD - 10/16/2023 10:40 AM EDTPatient Instructions Note Date & Type Note Facility 10-16-2023 History of Present illness Narrative Subjective Adri Burnham is a 88 y.o. male Chief Complaint Follow-up HPI Patient is in the office for follow-up for the problems noted below accompanied by his . He has chronic dizziness which is unrelated to cardiovascular disease. He has permanent atrial fibrillation and has been on Eliquis 2.5 mg twice daily with no palpitations and has had no bleeding complications on the Eliquis. Lab data from PCP were reviewed and there was no concern noted. His weight remains in the borderline obesity range. Despite his age he is maintains active lifestyle. His memory is still intact. His blood pressure under control. Because of bradycardia will reduce the metoprolol down to 12.5 mg daily. ASSESSMENT AND PLAN: 1-permanent atrial fibrillation, currently on Eliquis 2.5 mg twice daily and metoprolol, due to bradycardia will reduce metoprolol down to 12.5 mg daily. He remains asymptomatic. 2. History of left below knee DVT unprovoked. Continue Eliquis 3. Hypertension, presently under control, no changes are needed. He is on losartan 50 mg daily 4. History of Short runs of supraventricular tachycardia documented in the Holter monitor 2020 with no symptoms. Currently on beta-paul therapy 5. Mild mitral regurgitation, Echocardiogram was last done June 2020 6. Class I obesity. Encouraged the patient to continue to be physically active and reduce calorie intake to control his weight 7. Stage III chronic kidney disease being monitored and nonprogressive, basic metabolic profile is reviewed with the patient and his 8. Remote history of stroke with no residual deficit. Currently on Plavix and statin with no recurrences 9. Mild atherosclerotic coronary heart disease based on cardiac catheterization 2011 revealing 30% LAD lesion., Nuclear stress test 2019 was normal he is on statin and Plavix which we will continue. No further cardiac investigations will be needed in that regard 10. Mild lower extremity edema, he is on Lasix 40 mg every other day Dk Moffett MD, [facility] Review of Systems Respiratory: Positive for shortness of breath. Neurological: Positive for dizziness. All other systems reviewed and are negative. Vitals: 10/16/23 1034 10/16/23 1038 BP: 102/60 112/62 BP Location: Right arm Right arm Patient Position: Sitting Standing Pulse: 54 Weight: 92.5 kg (204 lb) Height: 1.753 m (5' 9 ) Objective Physical Exam Constitutional: Appearance: Normal appearance. HENT: Nose: Nose normal. Neck: Vascular: No carotid bruit. Cardiovascular: Rate and Rhythm: Bradycardia present. Pulses: Normal pulses. Heart sounds: Normal heart sounds. Pulmonary: Effort: Pulmonary effort is normal. Abdominal: General: Bowel sounds are normal. Palpations: Abdomen is soft. Musculoskeletal: General: Normal range of motion. Cervical back: Normal range of motion. Right lower leg: No edema. Left lower leg: No edema. Skin: General: Skin is warm and dry. Neurological: General: No focal deficit present. Mental Status: He is alert. Psychiatric: Mood and Affect: Mood normal. Behavior: Behavior normal. Thought Content: Thought content normal. Judgment: Judgment normal. Allergies Patient has no known allergies. Current Medications Current Outpatient Medications: apixaban (Eliquis) 2.5 mg tablet, Take 1 tablet (2.5 mg) by mouth 2 times a day., Disp: , Rfl: atorvastatin (Lipitor) 10 mg tablet, Take 1 tablet (10 mg) by mouth once daily at bedtime., Disp: , Rfl: clopidogrel (Plavix) 75 mg tablet, Take 1 tablet (75 mg) by mouth once daily., Disp: , Rfl: finasteride (Proscar) 5 mg tablet, Take 1 tablet (5 mg) by mouth once daily., Disp: , Rfl: furosemide (Lasix) 40 mg tablet, Take 1 tablet (40 mg) by mouth every other day., Disp: , Rfl: gabapentin (Neurontin) 300 mg capsule, TAKE 1 CAPSULE BY MOUTH EVERYDAY AT BEDTIME, Disp: , Rfl: losartan (Cozaar) 50 mg tablet, Take 1 tablet (50 mg) by mouth once daily., Disp: , Rfl: sennosides (SENNA ORAL), Take 1 tablet by mouth once daily., Disp: , Rfl: tamsulosin (Flomax) 0.4 mg 24 hr capsule, TAKE 1 CAPSULE BY MOUTH EVERYDAY 30 MINUTES AFTER EVENING MEAL, Disp: , Rfl: metoprolol tartrate (Lopressor) 25 mg tablet, Take 0.5 tablets (12.5 mg) by mouth once daily., Disp: 45 tablet, Rfl: 3 Assessment/Plan 1. Atherosclerosis of coronary artery, unspecified vessel or lesion type, unspecified whether angina present, unspecified whether [place] or transplanted heart Follow Up In Cardiology Follow Up In Cardiology 2. Permanent atrial fibrillation (Multi) 3. Essential hypertension 4. Mixed hyperlipidemia 5. Mitral valve insufficiency, unspecified etiology 6. Patent foramen ovale (HHS-HCC) 7. Stage 3b chronic kidney disease (Multi) 8. Atherosclerotic heart disease of [place] coronary artery without angina pectoris metoprolol tartrate (Lopressor) 25 mg tablet 9. Deep vein thrombosis (DVT) of lower extremity, unspecified chronicity, unspecified laterality, unspecified vein (Multi) 10. BMI 30.0-30.9,adult Scribe Attestation By signing my name below, IJo LPN , Scribe attest that this documentation has been prepared under the direction and in the presence of Dk Moffett MD. Provider Attestation - Scribe documentation All medical record entries made by the Scribe were at my direction and personally dictated by me. I have reviewed the chart and agree that the record accurately reflects my personal performance of the history, physical exam, discussion and plan. documented in this encounter [facility] Work Phone: 10-16-2023 Instructions Jo Modi LPN - 10/16/2023 10:40 AM EDT Please bring all medicines, vitamins, and herbal supplements with you when you come to the office. Prescriptions will not be filled unless you are compliant with your follow up appointments or have a follow up appointment scheduled as per instruction of your physician. Refills should be requested at the time of your visit. BMI was above normal measurement. Current weight: 92.5 kg (204 lb) Weight change since last visit (-) denotes wt loss -3 lbs Weight loss needed to achieve BMI 25: 35.1 Lbs Weight loss needed to achieve BMI 30: 1.3 Lbs Provided instructions on dietary changes Provided instructions on exercise. documented in this encounter [facility] Work Phone: 10-02-2023 Hospital Discharge instructions Patient Education 10/02/2023 13:11:37 Benign Prostatic Hyperplasia Benign Prostatic Hyperplasia Benign prostatic hyperplasia (BPH) is an enlarged prostate gland that is caused by the normal aging process. The prostate may get bigger as a man gets older. The condition is not caused by cancer. The prostate is a walnut-sized gland that is involved in the production of semen. It is located in front of the rectum and below the bladder. The bladder stores urine. The urethra carries stored urine out of the body. An enlarged prostate can press on the urethra. This can make it harder to pass urine. The buildup of urine in the bladder can cause infection. Back pressure and infection may progress to bladder damage and kidney (renal) failure. What are the causes? This condition is part of the normal aging process. However, not all men develop problems from this condition. If the prostate enlarges away from the urethra, urine flow will not be blocked. If it enlarges toward the urethra and compresses it, there will be problems passing urine. What increases the risk? This condition is more likely to develop in men older than 50 years. What are the signs or symptoms? Symptoms of this condition include: Getting up often during the night to urinate. Needing to urinate frequently during the day. Difficulty starting urine flow. Decrease in size and strength of your urine stream. Leaking (dribbling) after urinating. Inability to pass urine. This needs immediate treatment. Inability to completely empty your bladder. Pain when you pass urine. This is more common if there is also an infection. Urinary tract infection (UTI). How is this diagnosed? This condition is diagnosed based on your medical history, a physical exam, and your symptoms. Tests will also be done, such as: A post-void bladder scan. This measures any amount of urine that may remain in your bladder after you finish urinating. A digital rectal exam. In a rectal exam, your health care provider checks your prostate by putting a lubricated, gloved finger into your rectum to feel the back of your prostate gland. This exam detects the size of your gland and any abnormal lumps or growths. An exam of your urine (urinalysis). A prostate specific antigen (PSA) screening. This is a blood test used to screen for prostate cancer. An ultrasound. This test uses sound waves to electronically produce a picture of your prostate gland. Your health care provider may refer you to a specialist in kidney and prostate diseases (urologist). How is this treated? Once symptoms begin, your health care provider will monitor your condition (active surveillance or watchful waiting). Treatment for this condition will depend on the severity of your condition. Treatment may include: Observation and yearly exams. This may be the only treatment needed if your condition and symptoms are mild. Medicines to relieve your symptoms, including: ?Medicines to shrink the prostate. ?Medicines to relax the muscle of the prostate. Surgery in severe cases. Surgery may include: ?Prostatectomy. In this procedure, the prostate tissue is removed completely through an open incision or with a laparoscope or robotics. ?Transurethral resection of the prostate (TURP). In this procedure, a tool is inserted through the opening at the tip of the penis (urethra). It is used to cut away tissue of the inner core of the prostate. The pieces are removed through the same opening of the penis. This removes the blockage. ?Transurethral incision (TUIP). In this procedure, small cuts are made in the prostate. This lessens the prostate's pressure on the urethra. ?Transurethral microwave thermotherapy (TUMT). This procedure uses microwaves to create heat. The heat destroys and removes a small amount of prostate tissue. ?Transurethral needle ablation (TUNA). This procedure uses radio frequencies to destroy and remove a small amount of prostate tissue. ?Interstitial laser coagulation (ILC). This procedure uses a laser to destroy and remove a small amount of prostate tissue. ?Transurethral electrovaporization (TUVP). This procedure uses electrodes to destroy and remove a small amount of prostate tissue. ?Prostatic urethral lift. This procedure inserts an implant to push the lobes of the prostate away from the urethra. Follow these instructions at home: Take hzuc-ber-zrwzzqn and prescription medicines only as told by your health care provider. Monitor your symptoms for any changes. Contact your health care provider with any changes. Avoid drinking large amounts of liquid before going to bed or out in public. Avoid or reduce how much caffeine or alcohol you drink. Give yourself time when you urinate. Keep all follow-up visits. This is important. Contact a health care provider if: You have unexplained back pain. Your symptoms do not get better with treatment. You develop side effects from the medicine you are taking. Your urine becomes very dark or has a bad smell. Your lower abdomen becomes distended and you have trouble passing urine. Get help right away if: You have a fever or chills. You suddenly cannot urinate. You feel light-headed or very dizzy, or you faint. There are large amounts of blood or clots in your urine. Your urinary problems become hard to manage. You develop moderate to severe low back or flank pain. The flank is the side of your body between the ribs and the hip. These symptoms may be an emergency. Get help right away. Call 911. Do not wait to see if the symptoms will go away. Do not drive yourself to the hospital. Summary Benign prostatic hyperplasia (BPH) is an enlarged prostate that is caused by the normal aging process. It is not caused by cancer. An enlarged prostate can press on the urethra. This can make it hard to pass urine. This condition is more likely to develop in men older than 50 years. Get help right away if you suddenly cannot urinate. This information is not intended to replace advice given to you by your health care provider. Make sure you discuss any questions you have with your health care provider. Document Revised: 12/21/2021 Document Reviewed: 12/21/2021 [employer] Patient Education 2022 [employer]. 10/02/2023 13:11:35 Balanitis Balanitis Balanitis is swelling and irritation of the head of the penis (glans penis). Balanitis occurs most often among males who have not had their foreskin removed (uncircumcised). In uncircumcised males, the condition may also cause inflammation of the skin around the foreskin. Balanitis sometimes causes scarring of the penis or foreskin, which can require surgery. This condition may develop because of an infection or another medical condition. Untreated balanitis can increase the risk of penile cancer. What are the causes? Common causes of this condition include: Irritation and lack of airflow due to fluid (smegma) that can build up on the glans penis. Poor personal hygiene, especially in uncircumcised males. Not cleaning the glans penis and foreskin well can result in a buildup of bacteria, viruses, and yeast, which can lead to infection and inflammation. Other causes include: Chemical irritation from products such as soaps or shower gels, especially those that have fragrance. Chemical irritation can also be caused by condoms, personal lubricants, petroleum jelly, spermicides, fabric softeners, or laundry detergents. Skin conditions, such as eczema, dermatitis, and psoriasis. Allergies to medicines, such as tetracycline and sulfa drugs. What increases the risk? The following factors may make you more likely to develop this condition: Being an uncircumcised male. Having diabetes. Having other medical conditions, including liver cirrhosis, congestive heart failure, or kidney disease. Having infections, such as candidiasis, HPV (human papillomavirus), herpes simplex, gonorrhea, or syphilis. Having a tight foreskin that is difficult to pull back (retract) past the glans penis. Being severely obese. History of reactive arthritis. What are the signs or symptoms? Symptoms of this condition include: Discharge from under the foreskin, and pain or difficulty retracting the foreskin. A bad smell or itchiness on the penis. Tenderness, redness, and swelling of the glans penis. A rash or sores on the glans penis or foreskin. Inability to get an erection due to pain. Trouble urinating. Scarring of the penis or foreskin, in some cases. How is this diagnosed? This condition may be diagnosed based on a physical exam and tests of a swab of discharge to check for bacterial or fungal infection. You may also have blood tests to check for: Viruses that can cause balanitis. A high blood sugar (glucose) level. This could be a sign of diabetes, which can increase the risk of balanitis. How is this treated? Treatment for this condition depends on the cause. Treatment may include: Improving personal hygiene. Your health care provider may recommend sitting in a bath of warm water that is deep enough to cover your hips and buttocks (sitz bath). Medicines such as: ?Creams or ointments to reduce swelling (steroids) or to treat an infection. ?Antibiotic medicine. ?Antifungal medicine. Having surgery to remove or cut the foreskin (circumcision). This may be done if you have scarring on the foreskin that makes it difficult to retract. Controlling other medical problems that may be causing your condition or making it worse. Follow these instructions at home: Medicines Take jhdt-lte-treuctz and prescription medicines only as told by your health care provider. If you were prescribed an antibiotic medicine, use it as told by your health care provider. Do not stop using the antibiotic even if you start to feel better. General instructions Do not have sex until the condition clears up, or until your health care provider approves. Keep your penis clean and dry. Take sitz baths as recommended by your health care provider. Avoid products that irritate your skin or make symptoms worse, such as soaps and shower gels that have fragrance. Keep all follow-up visits. This is important. Contact a health care provider if: Your symptoms get worse or do not improve with home care. You develop chills or a fever. You have trouble urinating. You cannot retract your foreskin. Get help right away if: You develop severe pain. You are unable to urinate. Summary Balanitis is swelling and irritation of the head of the penis (glans penis). This condition is most common among uncircumcised males. Balanitis causes pain, redness, and swelling of the glans penis. Good personal hygiene is important. Treatment may include improving personal hygiene and applying creams or ointments. Contact a health care provider if your symptoms get worse or do not improve with home care. This information is not intended to replace advice given to you by your health care provider. Make sure you discuss any questions you have with your health care provider. Document Revised: 11/16/2021 Document Reviewed: 11/16/2021 [employer] Patient Education 2022 [employer]. [facility] 09-18-2023 Hospital Discharge instructions Patient Education 09/18/2023 11:11:46 Acute Urinary Retention, Male Acute Urinary Retention, Male Acute urinary retention is a condition in which a person is unable to pass urine or can only pass a little urine. This condition can happen suddenly and last for a short time. If left untreated, it can become long-term (chronic) and result in kidney damage or other serious complications. What are the causes? This condition may be caused by: Obstruction or narrowing of the tube that drains the bladder (urethra). This may be caused by surgery, problems with nearby organs, or injury to the bladder or urethra. Problems with the nerves in the bladder. Tumors in the area of the pelvis, bladder, or urethra. Certain medicines. Bladder or urinary tract infection. Constipation. What increases the risk? This condition is more likely to develop in older men. As men age, their prostate may become larger and may start to press or squeeze on the bladder or the urethra. Other chronic health conditions can increase the risk of acute urinary retention. These include: Diseases such as multiple sclerosis. Spinal cord injuries. Diabetes. Degenerative cognitive conditions, such as delirium or dementia. Psychological conditions. A man may hold his urine due to trauma or because he does not want to use the bathroom. What are the signs or symptoms? Symptoms of this condition include: Trouble urinating. Pain in the lower abdomen. How is this diagnosed? This condition is diagnosed based on a physical exam and your medical history. You may also have other tests, including: An ultrasound of the bladder or kidneys or both. Blood tests. A urine analysis. Additional tests may be needed, such as a CT scan, MRI, and kidney or bladder function tests. How is this treated? Treatment for this condition may include: Medicines. Placing a thin, sterile tube (catheter) into the bladder to drain urine out of the body. This is called an indwelling urinary catheter. After it is inserted, the catheter is held in place with a small balloon that is filled with sterile water. Urine drains from the catheter into a collection bag outside of the body. Behavioral therapy. Treatment for other conditions. If needed, you may be treated in the hospital for kidney function problems or to manage other complications. Follow these instructions at home: Medicines Take pfub-aux-jowgxzw and prescription medicines only as told by your health care provider. Avoid certain medicines, such as decongestants, antihistamines, and some prescription medicines. Do not take any medicine unless your health care provider approves. If you were prescribed an antibiotic medicine, take it as told by your health care provider. Do not stop using the antibiotic even if you start to feel better. General instructions Do not use any products that contain nicotine or tobacco. These products include cigarettes, chewing tobacco, and vaping devices, such as e-cigarettes. If you need help quitting, ask your health care provider. Drink enough fluid to keep your urine pale yellow. If you have an indwelling urinary catheter, follow the instructions from your health care provider. Monitor any changes in your symptoms. Tell your health care provider about any changes. If instructed, monitor your blood pressure at home. Report changes as told by your health care provider. Keep all follow-up visits. This is important. Contact a health care provider if: You have uncomfortable bladder contractions that you cannot control (spasms). You leak urine with the spasms. Get help right away if: You have chills or a fever. You have blood in your urine. You have a catheter and the following happens: ?Your catheter stops draining urine. ?Your catheter falls out. Summary Acute urinary retention is a condition in which a person is unable to pass urine or can only pass a little urine. If left untreated, this condition can result in kidney damage or other serious complications. An enlarged prostate may cause this condition. As men age, their prostate gland may become larger and may press or squeeze on the bladder or the urethra. Treatment for this condition may include medicines and placement of an indwelling urinary catheter. Monitor any changes in your symptoms. Tell your health care provider about any changes. This information is not intended to replace advice given to you by your health care provider. Make sure you discuss any questions you have with your health care provider. Document Revised: 02/23/2021 Document Reviewed: 02/23/2021 [employer] Patient Education 2022 [employer]. Follow Up Care 07/03/2022 15:13:29 With:CLAY CHENEY, JANICE Schofield, URL Address: [address] [facility] [place] [address] When:Within 1 Year(s) Comments:w/FABIO or PRW [facility] 07-04-2023 Evaluation note Encounter Date Diagnosis Assessment Notes Jun, Persistent atrial fibrillation (ICD-10 - I48.19) This patient is rate controlled. This patient is anticoagulated to prevent thromboembolic events. They are maintaining regular scheduled appts with their college professor. Monitoring for s/s of CHF - denies CP, palpitations, orthopnea or PND - minimal dependent edema is stable Monitoring for s/s bleeding - denies abd pain, hematochezia or melena f/u Cardiology Jun, ASHD (arterioscleroti c heart disease) (ICD-10 - I25.10) This patient is stable without activity related CP, dyspnea or lightheadedness. They are instructed to continue exercise and AHA diet plan. Continue secondary prevention measures. Jun, Chronic kidney disease, stage 3b (ICD-10 - N18.32) The patient is instructed on adequate control of hypertension and diabetes, if appropriate. They are also educated on the associated risks of NSAIDs and PPI use with kidney disease. They were instructed on adequate fluid balance and to avoid dehydration. Jun, Chronic diastolic heart failure (ICD-10 - I50.32) Instructed on healthy diet and exercise. Continue daily weights and instructed to take extra diuretic for > 3lbs weight gain. Monitor for s/s CHF - denies SMITH, orthopnea or PND - denies increased lower extremity edema Jun, Primary hypertension (ICD-10 - I10) This patient is instructed to consume a healthy, low-fat, low-salt diet. They are also encouraged to continue exercise to achieve/maintain a normal BMI. Patient is instructed on home BP measurements: - rest for 5 minutes w/o talking.- positioned w/ feet on floor and arm supported.- average best 2/3 readings w/ goal < 135/85.- update office w/ home readings in 2 weeks. Jun, Elevated cholesterol (ICD-10 - E78.00) Instructed on diet and exercise with continued statin therapy.Discussed the beneficial effects of lowering cholesterol in reducing the risk for cerebrovascular and cardiovascular disease. Jun, Lumbar spondylosis (ICD-10 - M47.816) The patient is instructed to avoid bending, twisting or lifting. They are to use intermittent heat and ice as needed. They may schedule a massage or gentle manipulation. They may safely use Tylenol as needed. Instructed on daily treatment for OA, no cure, keep active Jun, Anticoagulated (ICD-10 - Z79.01) No s/s bleeding. Dose adjusted for CKD [employer] Other 11-17-2023 Evaluation note* Encounter Date Diagnosis Assessment Notes Treatment Notes Treatment Clinical Notes Apr, Persistent atrial fibrillation (ICD-10 - I48.19) This patient is in NSR or rate controlled. This patient is anticoagulated to prevent thromboembolic events. They are maintaining regular scheduled appts with their college professor. No bleeding complications Apr, Contusion of left chest wall, initial encounter (ICD-10 - S20.212A) Ice/heat and Tylenol. No XR necessary at this time Call w/ increased pain, SOB or hemoptysis Apr, Generally unsteady (ICD-10 - R26.81) Instructed to slow down. He has a slow, shuffling gait He should use a walker for stability and he in fact has one at home. Apr, Primary hypertension (ICD-10 - I10) This patient is instructed to consume a healthy, low-fat, low-salt diet. They are also encouraged to continue exercise to achieve/maintain a normal BMI. Apr, Anticoagulated (ICD-10 - Z79.01) Increased risk of bleeding w/ trauma. Stressed importance of fall precautions [employer] Other 07-12-2023 Evaluation note* Encounter Date Diagnosis Assessment Notes Treatment Notes Treatment Clinical Notes Dec, Medicare annual wellness visit, subsequent (ICD-10 - Z00.00) Personalized health advice was given to the beneficiary including a written plan for screenings discussed and provided. Advanced care planning reviewed and/or information given as requested. Additional counseling was provided here today in regards to, [ ]. The above visit was performed by [ ], under direct supervision of [ ]. Document reviewed and amended by provider signed below. Dec, Persistent atrial fibrillation (ICD-10 - I48.19) This patient is in NSR or rate controlled. This patient is anticoagulated to prevent thromboembolic events. They are maintaining regular scheduled appts with their college professor. Dec, Chronic kidney disease, stage 3b (ICD-10 - N18.32) The patient is instructed on adequate control of hypertension and diabetes, if appropriate. They are also educated on the associated risks of NSAIDs and PPI use with kidney disease. They were instructed on adequate fluid balance and to avoid dehydration. Dec, Elevated cholesterol (ICD-10 - E78.00) Instructed on diet and exercise with continued statin therapy.Discussed the beneficial effects of lowering cholesterol in reducing the risk for cerebrovascular and cardiovascular disease. Dec, Anticoagulated (ICD-10 - Z79.01) Dec, Lumbar spondylosis (ICD-10 - M47.816) The patient is instructed to avoid bending, twisting or lifting. They are to use intermittent heat and ice as needed. They may schedule a massage or gentle manipulation. They may safely use Tylenol as needed. Dec, Primary hypertension (ICD-10 - I10) This patient is instructed to consume a healthy, low-fat, low-salt diet. They are also encouraged to continue exercise to achieve/maintain a normal BMI. Dec, High risk medication use (ICD-10 - Z79.899) Dec, Fatigue, unspecified type (ICD-10 - R53.83) Dec, Chronic diastolic heart failure (ICD-10 - I50.32) Healthy, low salt diet. Adequate control of BP. Maintain euvolemia: daily weights - increase Lasix to qd from qod until weight back to baseline [employer] Other 06-01-2023 Evaluation note* Encounter Date Diagnosis Assessment Notes Treatment Notes Treatment Clinical Notes Nov, Acute on chronic diastolic heart failure (ICD-10 - I50.33) [employer] Other 05-26-2023 Evaluation note* Encounter Date Diagnosis Assessment Notes Treatment Notes Treatment Clinical Notes October, Persistent atrial fibrillation (ICD-10 - I48.19) This patient is rate controlled. This patient is anticoagulated to prevent thromboembolic events. They are maintaining regular scheduled appts with their college professor. Discussed treatment options: - rate controlled (symptomatic, likely not best option) - medication to restort NSR - Cardioversion to restore NSR Will discuss and refer to Cardiology October, Acute on chronic diastolic heart failure (ICD-10 - I50.33) Compensated, no longer orthopneic and edema has resolved. Aware may have permissive azotemia as a result of adding diuretic Check BNP and BMP October, Stage 3b chronic kidney disease (ICD-10 - N18.32) The patient is instructed on adequate control of hypertension and diabetes, if appropriate. They are also educated on the associated risks of NSAIDs and PPI use with kidney disease. They were instructed on adequate fluid balance and to avoid dehydration. October, Essential hypertension (ICD-10 - I10) This patient is instructed to consume a healthy, low-fat, low-salt diet. They are also encouraged to continue exercise to achieve/maintain a normal BMI. October, Hyperlipidemia type II (ICD-10 - E78.01) October, Patent foramen ovale (ICD-10 - Q21.12) October, Infrarenal abdominal aortic aneurysm (AAA) without rupture (ICD-10 - I71.43) October, Cerebral atherosclerosis (ICD-10 - I67.2) [employer] Other 04-13-2023 Evaluation note* Encounter Date Diagnosis Assessment Notes Treatment Notes Treatment Clinical Notes Sep, Essential hypertension (ICD-10 - I10) This patient is instructed to consume a healthy, low-fat, low-salt diet. They are also encouraged to continue exercise to achieve/maintain a normal BMI. Sep, Stage 3b chronic kidney disease (ICD-10 - N18.32) The patient is instructed on adequate control of hypertension and diabetes, if appropriate. They are also educated on the associated risks of NSAIDs and PPI use with kidney disease. They were instructed on adequate fluid balance and to avoid dehydration. Sep, Paroxysmal supraventricular tachycardia (ICD-10 - I47.1) Metoprolol as needed. His dose was recently cut in 06/19 due to fatigue. - unlikely culprit but may be able to eliminate completely and use PRN Avoid stimulants, hydrate w/ > 48oz water daily. Sep, Elevated cholesterol (ICD-10 - E78.00) Diet and exercise with continued statin therapy. Sep, Cerebellar infarctio n (ICD-10 - I63.9) Unsteady, fall precautions reiterated. Frequent falls w/o harm. Sep, [place] (generalized anxiety disorder) (ICD-10 - F41.1) Healthy diet, avoid stimulants, hydrate and keep active Sep, Gastroesophageal reflux disease with esophagitis without hemorrhage (ICD-10 - K21.00) Diet instructions: Smaller portions, avoid eating and laying flat, avoid eating or drinking prior to bedtime. Weight loss. Sep, Infrarenal abdominal aortic aneurysm (AAA) without rupture (ICD-10 - I71.43) Control BP Serial scans per Cardiology Sep, Hx of deep venous thrombosis (ICD-10 - Z86.718) Lifelong low dose anticoagulation for prevention. Sep, Paresthesias (ICD-10 - R20.2) Fall precautions, inspect feet daily for cuts Continue Neurontin [employer] Other 01-16-2023 Hospital Discharge instructions Patient Education 07/03/2022 08:43:46 Benign Prostatic Hyperplasia Benign Prostatic Hyperplasia Benign prostatic hyperplasia (BPH) is an enlarged prostate gland that is caused by the normal agingprocess and not by cancer. The prostate is a walnut-sized gland that is involved in the production of semen. It is located in front of the rectum and below the bladder. The bladder stores urine and the urethra is the tube that carries the urine out of the body. The prostate may get bigger as a man gets older. An enlarged prostate can press on the urethra. This can make it harder to pass urine. The build-up of urine in the bladder can cause infection. Back pressure and infection may progress to bladder damage and kidney (renal) failure. What are the causes? This condition is part of a normal aging process. However, not all men develop problems from this condition. If the prostate enlarges away from the urethra, urine flow will not be blocked. If it enlarges toward the urethra and compresses it, there will be problems passing urine. What increases the risk? This condition is more likely to develop in men over the age of 50 years. What are the signs or symptoms? Symptoms of this condition include: Getting up often during the night to urinate. Needing to urinate frequently during the day. Difficulty starting urine flow. Decrease in size and strength of your urine stream. Leaking (dribbling) after urinating. Inability to pass urine. This needs immediate treatment. Inability to completely empty your bladder. Pain when you pass urine. This is more common if there is also an infection. Urinary tract infection (UTI). How is this diagnosed? This condition is diagnosed based on your medical history, a physical exam, and your symptoms. Tests will also be done, such as: A post-void bladder scan. This measures any amount of urine that may remain in your bladder after you finish urinating. A digital rectal exam. In a rectal exam, your health care provider checks your prostate by putting a lubricated, gloved finger into your rectum to feel the back of your prostate gland. This exam detects the size of your gland and any abnormal lumps or growths. An exam of your urine (urinalysis). A prostate specific antigen (PSA) screening. This is a blood test used to screen for prostate cancer. An ultrasound. This test uses sound waves to electronically produce a picture of your prostate gland. Your health care provider may refer you to a specialist in kidney and prostate diseases (urologist). How is this treated? Once symptoms begin, your health care provider will monitor your condition (active surveillance or watchful waiting). Treatment for this condition will depend on the severity of your condition. Treatment may include: Observation and yearly exams. This may be the only treatment needed if your condition and symptoms are mild. Medicines to relieve your symptoms, including: ?Medicines to shrink the prostate. ?Medicines to relax the muscle of the prostate. Surgery in severe cases. Surgery may include: ?Prostatectomy. In this procedure, the prostate tissue is removed completely through an open incision or with a laparoscope or robotics. ?Transurethral resection of the prostate (TURP). In this procedure, a tool is inserted through the opening at the tip of the penis (urethra). It is used to cut away tissue of the inner core of the prostate. The pieces are removed through the same opening of the penis. This removes the blockage. ?Transurethral incision (TUIP). In this procedure, small cuts are made in the prostate. This lessens the prostate's pressure on the urethra. ?Transurethral microwave thermotherapy (TUMT). This procedure uses microwaves to create heat. The heat destroys and removes a small amount of prostate tissue. ?Transurethral needle ablation (TUNA). This procedure uses radio frequencies to destroy and remove a small amount of prostate tissue. ?Interstitial laser coagulation (ILC). This procedure uses a laser to destroy and remove a small amount of prostate tissue. ?Transurethral electrovaporization (TUVP). This procedure uses electrodes to destroy and remove a small amount of prostate tissue. ?Prostatic urethral lift. This procedure inserts an implant to push the lobes of the prostate away from the urethra. Follow these instructions at home: Take vznt-rwc-gbcgrmz and prescription medicines only as told by your health care provider. Monitor your symptoms for any changes. Contact your health care provider with any changes. Avoid drinking large amounts of liquid before going to bed or out in public. Avoid or reduce how much caffeine or alcohol you drink. Give yourself time when you urinate. Keep all follow-up visits as told by your health care provider. This is important. Contact a health care provider if: You have unexplained back pain. Your symptoms do not get better with treatment. You develop side effects from the medicine you are taking. Your urine becomes very dark or has a bad smell. Your lower abdomen becomes distended and you have trouble passing your urine. Get help right away if: You have a fever or chills. You suddenly cannot urinate. You feel lightheaded, or very dizzy, or you faint. There are large amounts of blood or clots in the urine. Your urinary problems become hard to manage. You develop moderate to severe low back or flank pain. The flank is the side of your body between the ribs and the hip. These symptoms may represent a serious problem that is an emergency. Do not wait to see if the symptoms will go away. Get medical help right away. Call your local emergency services (911 in the [place] Do not drive yourself to the hospital. Summary Benign prostatic hyperplasia (BPH) is an enlarged prostate that is caused by the normal aging process and not by cancer. An enlarged prostate can press on the urethra. This can make it hard to pass urine. This condition is part of a normal aging process and is more likely to develop in men over the age of 50 years. Get help right away if you suddenly cannot urinate. This information is not intended to replace advice given to you by your health care provider. Make sure you discuss any questions you have with your health care provider. Document Released: 06/04/2006 Document Revised: 04/29/2019 Document Reviewed: 07/09/2017 [employer] Patient Education 2020 [employer]. Follow Up Care 12/26/2021 14:38:04 With:NANDA RUIZ, Rojelio Jimenez, URL Address: [facility] [address] [place] [address]- When: Unknown [facility] 01-11-2023 Evaluation note* Encounter Date Diagnosis Assessment Notes Treatment Notes Treatment Clinical Notes Jun, Essential (primary) hypertension (ICD-10 - I10) This patient is instructed to consume a healthy, low-fat, low-salt diet. They are also encouraged to continue exercise to achieve/maintain a normal BMI. Jun, Chronic kidney disease, stage 3b (ICD-10 - N18.32) The patient is instructed on adequate control of hypertension and diabetes, if appropriate. They are also educated on the associated risks of NSAIDs and PPI use with kidney disease. They were instructed on adequate fluid balance and to avoid dehydration. 11 Roberto, 2023 Elevated cholesterol (ICD-10 - E78.00) Diet and exercise with continued statin therapy. Jun, Supraventricular tachycardia (ICD-10 - I47.1) Avoid stimulants. Continue BB therapy. Jun, Olecranon bursitis o f right elbow (ICD-10 - M70.21) Reassured that it will resolve w/ conservative treatment. Advised against aspiration due to increased risk of infection and increased rate of recurrence. Avoid pressure and use ice as needed. If develops pain or tenderness, call office for appt. Jun, Cerebral atherosclerosis (ICD-10 - I67.2) Continue AC and Plavix for secondary prevention. Continue control of BP, Cholesterol. Instructed to monitor for new neurologic deficits and to call 911 for emergent evaluation and transportation to the ER. Jun, Gastro-esophageal reflux disease with esophagitis, without bleeding (ICD-10 - K21.00) Diet instructions: Smaller portions, avoid eating and laying flat, avoid eating or drinking prior to bedtime. Weight loss. Jun, Infrarenal abdominal aortic aneurysm (AAA) without rupture (ICD-10 - I71.43) Control BP and continue statin therapy. Continue BB therapy. Serial abdominal US, refer if > 5cm Jun, Other Continue anticoagulation w/ DOAC w/ Plavix. Monitor for further neurologic symptoms. No driving. assisting w/ ADL. f/u Neurology, appt? [employer] Other 07-11-2022 Hospital Discharge instructions Patient Education 12/26/2021 14:28:03 Acute Urinary Retention, Male Acute Urinary Retention, Male Acute urinary retention is a condition in which a person is unable to pass urine. This can last fora short time or for a long time. If left untreated, it can result in kidney damage or other seriouscomplications. What are the causes? This condition may be caused by: Obstruction or narrowing of the tube that drains the bladder (urethra). This may be caused by surgery or problems with nearby organs, such as the prostate gland, which can press or squeeze the urethra. Problems with the nerves in the bladder. These can be caused by diseases, such as multiple sclerosis, or by spinal cord injuries. Certain medicines. Tumors in the area of the pelvis, bladder, or urethra. Diabetes. Degenerative cognitive conditions such as delirium or dementia. Bladder or urinary tract infection. Constipation. Blood in the urine (hematuria). Injury to the bladder or urethra. Psychological (psychogenic) conditions. Someone may hold his urine due to trauma or because he doesnot want to use the bathroom. What increases the risk? This condition is more likely to develop in older men. As men age, their prostate may become largerand may start pressing or squeezing on the bladder or the urethra. What are the signs or symptoms? Symptoms of this condition include: Trouble urinating. Pain in the lower abdomen. Symptoms usually come on slowly over a long period of time. How is this diagnosed? This condition is diagnosed based on a physical exam and a medical history. You may also have othertests, including: An ultrasound of the bladder or kidneys or both. Blood tests. A urine analysis. Additional tests may be needed such as an MRI, kidney, or bladder function tests. How is this treated? Treatment for this condition may include: Medicines. Placing a thin, sterile tube (catheter) into the bladder to drain urine out of the body. This is called an indwelling urinary catheter. After being inserted, the catheter is held in place with a small balloon that is filled with sterile water. Urine drains from the catheter into a collection bag outside of the body. Behavioral therapy. Treatment for any underlying conditions. If needed, you may be treated in the hospital for kidney function problems or to manage other complications. Follow these instructions at home: Take icrm-zyy-wxfqhfy and prescription medicines only as told by your health care provider. Avoid certain medicines, such as decongestants, antihistamines, and some prescription medicines. Do not take any medicine unless your health care provider has approved. If you were given an indwelling urinary catheter, take care of it as told by your health care provider. Drink enough fluid to keep your urine clear or pale yellow. If you were prescribed an antibiotic, take it as told by your health care provider. Do not stop taking the antibiotic even if you start to feel better. Do not use any products that contain nicotine or tobacco, such as cigarettes and e-cigarettes. If you need help quitting, ask your health care provider. Monitor any changes in your symptoms. Tell your health care provider about any changes. If instructed, monitor your blood pressure at home. Report changes as told by your health care provider. Keep all follow-up visits as told by your health care provider. This is important. Contact a health care provider if: You have uncomfortable bladder contractions that you cannot control (spasms) or you leak urine withthe spasms. Get help right away if: You have chills or fever. You have blood in your urine. You have a catheter and: ?Your catheter stops draining urine. ?Your catheter falls out. Summary Acute urinary retention is a condition in which a person is unable to pass urine. If left untreated, it can result in kidney damage or other serious complications. The cause of this condition may include an enlarged prostate. As men age, their prostate gland may become larger and may start pressing or squeezing on the bladder or the urethra. Treatment for this condition may include medicines and placement of an indwelling urinary catheter. Monitor any changes in your symptoms. Tell your health care provider about any changes. This information is not intended to replace advice given to you by your health care provider. Make sure you discuss any questions you have with your health care provider. Document Released: 09/10/2001 Document Revised: 05/17/2018 Document Reviewed: 07/06/2017 [employer] Patient Education [employer]. Follow Up Care 08/15/2021 11:37:16 With:Rojelio MARK MD, URL Address: [facility] [address], [place] [address]- [phone] When:06/28/[address] [facility] evaluation + Plan note Future Appointments Appointment Date:07/03/2022 01:45:00 PM Scheduled Provider:Rojelio MARK MD Location:[facility] Appointment Type:URO Office Visit [facility] evaluation + Plan note Future Appointments Appointment Date:07/09/2023 01:15:00 PM Scheduled Provider:Rojelio MARK MD Location:[facility] Appointment Type:URO Office Visit [facility] evaluation + Plan note Future Appointments Appointment Date:09/22/2024 10:30:00 AM Scheduled Provider:Rojelio MARK MD Location:[facility] Appointment Type:URO Office Visit [facility] evaluation noteNo [employer] Other Evaluation note* Diagnosis Onset Date Resolution Status ASHD (arteriosclerotic heart disease) acute Atrial fibrillation acute Cerebral atherosclerosis acu te Chronic kidney disease, stage 3b acute Elevated cholesterol acute Essential (primary) hypertension acute [facility] Work Phone: Evaluation note* Diagnosis Atherosclerosis of coronary artery, unspecified vessel or lesion type, unspecified whether angina present, unspecified whether [place] or transplanted heart Permanent atrial fibrillation (Multi) Atrial fibrillation Essential hypertension Unspecified essential hypertension Mixed hyperlipidemia Mitral valve insufficiency, unspecified etiology Patent foramen ovale (HHS-HCC) 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 3b chronic kidney disease (Multi) Deep vein thrombosis (DVT) of lower extremity, unspecified chronicity, unspecified laterality, unspecified vein (Multi) BMI 30.0-30.9,adult documented in this encounter [facility] Work Phone: Evaluation note* Diagnosis Onset Date Resolution Status ASHD (arteriosclerotic heart disease) acute Atrial fibrillation acute Cerebral atherosclerosis acu te Chronic kidney disease, stage 3b acute Elevated cholesterol acute Essential (primary) hypertension acute Medicare annual wellness visit, subsequent noneactive [facility] Work Phone: History general Narrative - Reported* Type Description Date Medical History Parkinson disease Medical History Cerebellar infarction Medical History 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 Medical History BPPV (benign paroxysmal position al vertigo), bilateral Medical History Patent foramen ovale Medical History Infrarenal abdominal aortic aneurysm (AAA) without rupture Medical History Chronic pain Medical History Bilateral low back p ain without sciatica, unspecified chronicity Medical History Cystic mass of pancreas Medical History Anticoagulated Medical History Renal cyst, left Medical History Cervical spondylosis Medical History CAR[place] (generalized anxiety disorde r) Medical History Lumbar spondylosis Medical History History of nephrolithiasis Medical History Gastroesophageal ref lux disease with esophagitis without hemorrhage Medical History Hypertensive chronic kidney disease w stg 1-4/unsp chr kdny Medical History Stage 3b chronic kidney disease Medical History Paroxysmal supraventricular tach ycardia Medical History Hyperlipidemia type II Medical History Paresthesias Medical History Mild obesity Medical History Benign prostatic hyp erplasia with lower urinary tract symptoms Medical History Nystagmus Medical History Diplopia Medical History Ataxia Medical History Contusion of foot, right Medical History High risk medication use Medical History Abrasion of knee, right Medical History Concussion without l oss of consciousness, subsequent encounter Medical History Bilateral hip pain Medical History Hoarseness, persistent Medical History Facial laceration, subsequent en counter Medical History Closed fracture of n yesenia bone with routine healing, subsequent encounter Medical History Primary osteoarthritis of left f oot Medical History Plantar fasciitis, left Medical History Polyuria Medical History Essential hypertension Medical History Polyp of colon, villous adenoma Surgical History EGD 12/2017 Surgical History Colonoscopy 11/2014 Hospitalization History see surgical history [employer] Other History general Narrative - Reported* Type Description Date Medical History Parkinson disease Medical History Cerebellar infarction Medical History 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 Medical History Patent foramen ovale Medical History Infrarenal abdominal aortic aneurysm (AAA) without rupture Medical History Cystic mass of pancreas Medical History Anticoagulated Medical History Renal cyst, left Medical History Cervical spondylosis Medical History CAR[place]INA (generalized anxiety disorde r) Medical History Lumbar spondylosis Medical History History of nephrolithiasis Medical History Gastroesophageal ref lux disease with esophagitis without hemorrhage Medical History Hypertensive chronic kidney disease w stg 1-4/unsp chr kdny Medical History Stage 3b chronic kidney disease Medical History Paroxysmal supraventricular tach ycardia Medical History Hyperlipidemia type II Medical History Mild obesity Medical History Benign prostatic hyp erplasia with lower urinary tract symptoms Medical History Ataxia Medical History Primary osteoarthritis of left f oot Medical History Essential hypertension Medical History Polyp of colon, villous adenoma Surgical History EGD 12/2017 Surgical History Colonoscopy 11/2014 Hospitalization History see surgical history [employer] Other Hospital course Narrative No data available for this section [facility] progress note No data available for this section [facility] for referral (narrative)* Consultation (Routine) - Authorized Specialty Diagnoses / Procedures Referred By Wally t Referred To Contact Cardiology Diagnoses Atherosclerosis of coronary artery, unspecified vessel or lesion type, unspecified whether angina present, unspecified whether gila river or transplanted heart Procedures Follow Up In Cardiology Dk Moffett MD [address] [facility] 2, [address] [address] Dk Moffett MD 703 [facility] 2, [place] [address] [place] [id number] Referral ID Status Reason Start Date Expiration Date V isits Requested Visits Authorized [id number] Authorized 10/16/2023 10/15/2024 1 1 [facility] Work Phone: Summary Purpose Family History Unknown Family Member Name Dates Details Family history of liver canc er: Mother(V16.0, Z80.0) Status:Active Unknown Family Member Name Dates Details Family history of liver canc er: Mother(V16.0, Z80.0) Status:Active Unknown Family Member Name Dates Details Family history of liver canc er: Mother(V16.0, Z80.0) Status:Active Unknown Family Member Name Dates Details Family history of liver canc er: Mother(V16.0, Z80.0) Status:Active Unknown Family Member Name Dates Details Family history of liver canc er: Mother(V16.0, Z80.0) Status:Active Unknown Family Member Name Dates Details Family history of liver canc er: Mother(V16.0, Z80.0) Status:Active Unknown Family Member Name Dates Details Family history of liver canc er: Mother(V16.0, Z80.0) Status:Active Unknown Family Member Name Dates Details Family history of liver canc er: Mother(V16.0, Z80.0) Status:Active Unknown Family Member Name Dates Details Family history of liver canc er: Mother(V16.0, Z80.0) Status:Active Relationship Condition Age at Onset Recorded Date/T melissa father Unknown Not Specified Unknown Malignant neoplasm Unknown Relationship Condition Age at Onset Recorded Date/T melissa father Unknown mother Unknown Malignant neoplasm Unknown Advance Directives Advance Directive Response Recorded Date/ Time Advance Directives No July 12, 2023 3:02pm Chief Complaint ADRI BURNHAM is being seen for a 6 month follow-up of.* ADRI BURNHAM is being seen for a 6 month follow-up of. * Patient is in the office with his for follow-up for the problems noted below. He seemed to have intermittent episodes of getting sick and weak along with dizziness with no obvious cause. He maintains excellent appetite and has had no falls or syncope. He had an echocardiogram last year which was normal and had a stress test 2 years ago which was normal. He is known to have stage III chronic kidney disease. This seems to be no recent blood work done on him. He saw his PCP recently but this information was not passed on. His examination today was unremarkable for obesity. He was noted to be hypertensive in the office but he elected to watch it for the time being since his readings at home have been normal. * ASSESSMENT AND PLAN: * 1 patient today is having intermittent symptoms of not feeling well without specifics and with no obvious cause. I do not believe this is caused by cardiovascular event he does not seem to have issues with gastrointestinal problems. I elected to watch for the time being and obtain labs in view of his kidney disease and the lack of recent blood work. Patient and his family will be updated on the result when it becomes available * 2. History of left below knee DVT unprovoked. Jaz is on board. he will be on maintenance dose of 2.5 mg Twice daily for life, there has been no bleeding complications * 3. Hypertension, presently not under control, his blood pressure reading at home have been normal. I elected to watch it for now * 4. Short runs of supraventricular tachycardia documented in the Holter monitor 2020 with no symptoms. Currently on beta-paul therapy * 5. Mild mitral regurgitation, nonsignificant. Echocardiogram was last done June 2020 * 6. Mild obesity. Encouraged the patient to continue to be physically active and reduce calorie intake to control his weight * 7. Stage III chronic kidney disease being monitored and nonprogressive, basic metabolic profile is ordered * 8. Remote history of stroke with no residual deficit. Currently on aspirin and statin * 9. Mild atherosclerotic coronary heart disease based on cardiac catheterization 2011 revealing 30% LAD lesion., Nuclear stress test 2019 was normal he is on statin and aspirin which we will continue.No further cardiac investigations will be needed in that regard * Dk Moffett MD, FACC * ADRI BURNHAM is being seen for a 6 month follow-up of. * Patient is in the office with his for follow-up for the problems noted below. He is better than last visit but his main complaint is fatigue. He is known to have mild CAD not exceeding 30% by cardiac catheterization in the past with no history of heart failure for LV systolic dysfunction. The patient has been anticoagulated without any bleeding problems or recurrent DVT and his blood pressure is under control. He denies any palpitations orthopnea PND or lower extremity edema. His weight remains above target something that brought his attention. His fatigue is something that is probably related to his inactivity. Encouraged the patient to increase daily activities if he can. * ASSESSMENT AND PLAN: * 1 generalized fatigue due to deconditioning and lack of physical activities. Encouraged the patientto increase daily activities. * 2. History of left below knee DVT unprovoked. Jaz is on board. he will be on maintenance dose of 2.5 mg Twice daily for life, there has been no bleeding complications * 3. Hypertension, presently under control, changes are needed. History of * 4. Short runs of supraventricular tachycardia documented in the Holter monitor 2020 with no symptoms. Currently on beta-paul therapy * 5. Mild mitral regurgitation, nonsignificant. Echocardiogram was last done June 2020 * 6. Mild obesity. Encouraged the patient to continue to be physically active and reduce calorie intake to control his weight * 7. Stage III chronic kidney disease being monitored and nonprogressive, basic metabolic profile is ordered * 8. Remote history of stroke with no residual deficit. Currently on aspirin and statin * 9. Mild atherosclerotic coronary heart disease based on cardiac catheterization 2011 revealing 30% LAD lesion., Nuclear stress test 2019 was normal he is on statin and aspirin which we will continue.No further cardiac investigations will be needed in that regard * Dk Moffett MD, FACC * ADRI BURNHAM is being seen for a 6 month follow-up of. * Patient is in the office for follow-up accompanied by his for the problems noted below. His 's concern is that he is more tired and gets short of breath easier than usual. His pressure though is under control. His heart sounds are normal his lungs sounded normal. He has had recent lab data which I reviewed and the only abnormality was creatinine of 1.6 mg/dL which is chronic. He does nothave sleep apnea. He has significant obesity as noted. His cardiovascular pulmonary examinations were normal. His clinical condition from the objective standpoint seems to be satisfactory. Obviously his advancing age is a factor against him. * ASSESSMENT AND PLAN: * 1 generalized fatigue due to deconditioning and lack of physical activities. Encouraged the patientto increase daily activities. And to lose weight. * 2. History of left below knee DVT unprovoked. Jaz is on board. he will be on maintenance dose of 2.5 mg Twice daily for life, there has been no bleeding complications * 3. Hypertension, presently under control, changes are needed. History of * 4. History of Short runs of supraventricular tachycardia documented in the Holter monitor 2020 withno symptoms. Currently on beta-paul therapy, due to generalized fatigue reduce beta-paul therapy by 50%. * 5. Mild mitral regurgitation, insignificant. Echocardiogram was last done June 2020 * 6. Mild obesity. Encouraged the patient to continue to be physically active and reduce calorie intake to control his weight * 7. Stage III chronic kidney disease being monitored and nonprogressive, basic metabolic profile is reviewed with the patient and his * 8. Remote history of stroke with no residual deficit. Currently on Plavix and statin with no recurrences * 9. Mild atherosclerotic coronary heart disease based on cardiac catheterization 2011 revealing 30% LAD lesion., Nuclear stress test 2019 was normal he is on statin and Plavix which we will continue. No further cardiac investigations will be needed in that regard * Dk Moffett MD, [facility] Chief Complaint and Reason for Visit Chief Complaint Amb Documentation 4 month follow up Reason for Visit ASHD (arteriosclerot ic heart disease) Atrial fibrillation Cerebral atherosclerosis Chronic kidney disease, stage 3b Elevated cholesterol Essential (primary) hypertension Chief Complaint Wellness Reason for Visit ASHD (arteriosclerot ic heart disease) Atrial fibrillation Cerebral atherosclerosis Chronic kidney disease, stage 3b Elevated cholesterol Essential (primary) hypertension Medicare annual wellness visit, subsequent Additional Source Comments (unrecognized sect ion and content) No Status Records FoundNo Status Records FoundNo Status Records FoundNo Status Records FoundNo Status Records FoundNo Status Records FoundNo Status Records FoundNo Status Records FoundNo Status Records Found INFORMATION SOURCE (unrecogn ized section and content) DATE CREATED AUTHOR 12/07/2017 [facility] DATE CREATED AUTHOR AUTHOR'S ORGANIZ ATION 12/12/2017 [facility] DATE CREATED AUTHOR AUTHOR'S ORGANIZ ATION 07/18/2020 [facility] DATE CREATED AUTHOR AUTHOR'S ORGANIZ ATION 09/17/2022 [facility] DATE CREATED AUTHOR AUTHOR'S ORGANIZ ATION 09/17/2022 [employer] DATE CREATED AUTHOR AUTHOR'S ORGANIZ ATION 11/24/2022 [facility] DATE CREATED AUTHOR AUTHOR'S ORGANIZ ATION 10/03/2023 Palmer Zackary [facility] DATE CREATED AUTHOR AUTHOR'S ORGANIZ ATION 11/15/2023 [facility] tals Ambulatory DATE CREATED AUTHOR AUTHOR'S ORGANIZ ATION 11/24/2023 [facility] d[facility] Specialists [facility] Care Team (unrecognized sect ion and content) Team Status: Active Member Role Status Dates Sanya Nuno DO Primary Care Provider Active Team Status: Inactive Member Role Status Dates Sanya Nuno DO Primary Care Provide r, Attending Provider Active Start: January 23, 2024 End: January 23, 2024 Team Status: Active Member Role Status Dates Sanya Nuno DO Primary Care Provider Active Team Status: Active Member Role Status Dates Sanya Nuno DO Primary Care Provider Active Start: September 11, 2023 HUBERT Greene Attending Provider Active Start : September 11, 2023 Team Status: Inactive Member Role Status Dates Sanya Nuno DO Primary Care Provide r, Attending Provider Active Start: October 04, 2023 End: October 04, 2023 [employer] Relationship Specialty Start Date End Date Sanya Nuno DO PCP - General 07/14/20 Team Status: Inactive Member Role Status Dates Sanya Nuno DO Primary Care Provide r, Attending Provider Active Start: January 23, 2024 End: January 23, 2024 REASON FOR VISIT (unrecogniz ed section and content) Reason Comments Follow-up 6 months Specialty Diagnoses / Procedures Referred By Wally peña Referred To Contact Cardiology Diagnoses Atherosclerosis of coronary artery, unspecified vessel or lesion type, unspecified whether angina present, unspecified whether [place] or transplanted heart Procedures Follow Up In Cardiology Dk Moffett MD [address] [facility] 2, [address] [address] Referral ID Status Reason Start Date Expiration Date V isits Requested Visits Authorized [id number] Authorized 04/03/2023 04/02/2024 1 1 Goals (unrecognized section and content) Goals may be documented in a n alternate section FOR RECORDS PERTAINING TO PATIENTS WHO ARE OR HAVE BEEN ENROLLED IN A CHEMICAL DEPENDENCY/SUBSTANCEABUSE PROGRAM, SOME INFORMATION MAY BE OMITTED. This clinical summary was aggregated from multiple sources. Caution should be exercised in using it in the provision of clinical care. This summary normalizes information from multiple sources, and as a consequence, information in this document may materially change the coding, format and clinical context of patient data. In addition, data may be omitted in some cases. CLINICAL DECISIONS SHOULD BE BASED ON THE PRIMARY CLINICAL RECORDS. [facility]. provides no warranty or guarantee of the accuracy or completeness of information in this document.
[2024-01-28 07:21] LABS: Basophils Percent Auto 0.5 % (0.2-2.0); Eosinophils Absolute Auto 0.3 10^3/uL (0.0-0.7); Eosinophils Percent Auto 3.8 % (0.9-7.0); Hematocrit 43.8 % (42.0-54.0); Hemoglobin 14.8 g/dL (14.0-18.0); Immature Granulocytes Abs Auto 0.02 10^3/uL (0.00-0.03); Immature Granulocytes Pct Auto 0.3 % (0.0-0.5); Lymphocytes Percent Auto 27.7 % (20.5-60.0); Mean Corpuscular HGB Conc 33.8 g/dL (29.9-35.2); Mean Corpuscular Hemoglobin 32.2 pg (25.9-34.0); Mean Corpuscular Volume 95.4 fL (80.0-94.0); Mean Platelet Volume 9.6 fL (9.5-13.5); Monocytes Absolute Auto 0.6 10^3/uL (0.3-0.8); Monocytes Percent Auto 8.7 % (1.7-12.0); Neutrophils Absolute Auto 4.4 10^3/uL (1.4-6.5); Platelet Count 175 10^3/uL (150-450); Red Blood Count 4.59 10^6/uL (4.70-6.10); Red Cell Distribution Width 13.5 % (11.0-15.0); White Blood Count 7.4 10^3/uL (4.0-11.0)
[2024-01-28 08:05] LABS: Alanine Aminotransferase 20 U/L (16-63); Albumin Globulin Ratio 1.1; Albumin Level 3.2 g/dL (3.4-5.0); Alkaline Phosphatase 98 U/L (46-116); Anion Gap 13.9; Aspartate Amino Transferase 14 U/L (15-37); BUN Creatinine Ratio 12.5; Bilirubin Total 1.2 mg/dL (0.2-1.0); Calcium 9.3 mg/dL (8.5-10.1); Chloride 105 mmol/L (98-107); Chol HDL Ratio 2.4; Cholesterol 108 mg/dL (<=200); Estimated GFR (African America 50 (>=60); Estimated GFR (Non-African Ame 41 (>=60); Globulin 2.9 g/dL; Glucose 122 mg/dL (74-106); HDL Cholesterol 45 mg/dL (40-60); LDL Cholesterol Calculated 49.6 mg/dL; Potassium 3.9 mmol/L (3.5-5.1); Sodium 143 mmol/L (136-145); Total Protein 6.1 g/dL (6.4-8.2); Triglycerides 67 mg/dL (<=150); VLDL CHOLESTEROL 13.4 mg/dL
== END 2024-01-28 07:10 | disposition home or self-care (01) ==
LOC: LAB 07:09
PROVIDERS: PCP Internal Medicine; Visit Provider Internal Medicine
DX: E78.00 Pure hypercholesterolemia, unspecified (principal); I10 Essential (primary) hypertension; I48.91 Unspecified atrial fibrillation; N18.32 Chronic kidney disease, stage 3b; I25.10 Atherosclerotic heart disease of native coronary artery without angina pectoris
CPT/HCPCS: 36415; 80053; 80061; 85025